=== PATIENT | female | born 1965 | race Caucasian/White ===

== ENCOUNTER 2018-04-01 00:57 | Emergency (ER) | payer OTHER ==
[~2018-04-01] VITALS: Ht 162.6 cm; Wt 127.0 kg
[2018-04-01] MEDS ORDERED: PANTOPRAZOLE 40 MG 10ML VIAL IV STA (00:59)
[2018-04-01] MEDS ORDERED: ONDANSETRON HCL INJ 2 MG/ML VIAL IV STA ×2 (00:59→03:12)
--- OUTSIDE RECORDS SUMMARY | 2018-04-01 00:59 | XMS REPORT | Encounter Summary ---
Author Organization Unknown Address [address] [place] [address] Phone [phone] Reason for Visit Medical Complaint Instructions 1. Influenza-like illness fluticasone 50 mcg/actuation nasal spray,suspension benzonatate 200 mg capsule Bromfed DM 2 mg-30 mg-10 mg/5 mL syrup rapid flu (A+B) oseltamivir 75 mg capsule influenza (flu): care instructions 2. Diarrhea diarrhea: care instructions loperamide 2 mg capsule Discussion Note Pt in NAD, understands all information provided Plan of Care Patient Instructions Pt understands care instructions, will rest, increase fluids,monitor and treat fever with OCT tylenol/ibuprofen and practice good hand hygiene. Please seek care (PCP, Urgent Care, ER) or [facility] if symptoms get worse or do not resolve in 1 week. Reminders Provider Appointments None recorded. Lab Rapid Flu (A+B) 06/09/2016 [facility] Referral None recorded. Procedures None recorded. Surgeries None recorded. Imaging None recorded. Medications Name Start Date azelastine 137 mcg (0.1 %) nasal spray aerosol azithromycin 250 mg tablet Belviq 10 mg tablet TAKE ONE (1) TABLET(S) BY MOUTH TWICE A DAY. benzonatate 200 mg capsule Take 1 capsule 3 times a day by oral route as needed for cough. Bromfed DM 2 mg-30 mg-10 mg/5 mL syrup Take 10 mL every 6 hours by oral route as needed for cough. ciprofloxacin 500 mg tablet EpiPen 2-Dannie 0.3 mg/0.3 mL injection, auto-injector INJECT ONE (1) SYRINGE INTRAMUSCULARLY 1 DOSE. fluticasone 50 mcg/actuation nasal spray,suspension Inhale 1 sprays into each nostril twice a day levocetirizine 5 mg tablet levofloxacin 500 mg tablet levothyroxine 125 mcg tablet levothyroxine 150 mcg tablet liothyronine 5 mcg tablet loperamide 2 mg capsule 4 mg PO x1, then 2 mg PO after each loose stool; Max: 16 mg/day misoprostol 200 mcg tablet montelukast 10 mg tablet Mucinex D Maximum Strength 120 mg-1,200 mg tablet,extended release Take 1 tablet every 12 hours by oral route as directed for 10 days. Nasonex 50 mcg/actuation [place] nystatin 100,000 unit/mL oral suspension SHAKE WELL; SWISH AND SPIT 5ML ORALLY FOUR TIMES A DAY FOR 7 DAYS. oseltamivir 75 mg capsule Take 1 capsule twice a day by oral route for 5 days. phendimetrazine tartrate ER 105 mg capsule,extended release TAKE ONE (1) CAPSULE(S) BY MOUTH ONCE A DAY. phentermine 37.5 mg tablet TAKE ONE AND ONE-HALF (1 AND 1/2) TABLET(S) BY MOUTH ONCE A DAY. prednisone 20 mg tablet TAKE ONE (1) TABLET(S) BY MOUTH EVERY DAY WITH MEALS FOR 5 DAYS. ProAir HFA 90 mcg/actuation aerosol inhaler INHALE TWO (2) PUFFS BY MOUTH EVERY 4 TO 6 HOURS NEEDED FOR COUGH / WHEEZING. promethazine-DM 6.25 mg-15 mg/5 mL syrup sulfamethoxazole 800 mg-trimethoprim 160 mg tablet tramadol 37.5 mg-acetaminophen 325 mg tablet Medications Administered None recorded. Vitals Height Weight BMI Blood Pressure 5 ft 4 in 280 lbs 48.1 130/90 Lab Results None recorded. Allergies Name Reaction Severity Onset Biaxin Nausea Vomiting Clindamycin Respiratory Distress Penicillins Other Severe Problems Name Status Onset Date Source Lupus Erythematosus Active 06/09/2016 Acute Conjunctivitis Active Encounter Dysfunction of Eustachian Tube Active Encounter Otitis Media Active Encounter Acute Sinusitis Active Encounter Acute Maxillary Sinusitis Active Encounter Acute Upper Respiratory Infection Active Encounter Upper Respiratory Infection Active Encounter Acute Bronchitis Active Encounter Allergic Rhinitis Active Encounter Allergic Rhinitis Due to Pollen Active Encounter Procedures Date Name Performed by 04/14/2014 Cholecystectomy Information not available Vaccine List Vaccine Type Influenza A monovalent (H5N1), ADJUVANTED-201201/11/2014 influenza, seasonal, injectable 01/11/2015 influenza, unspecified formulation 01/24/2013 Tdap 04/13/2006 Social History Smoking Status Never Smoker Past Encounters 06/09/2016 Influenza-like Illness; Diarrhea Mihir Small, THERMOSTAT MAKER-C: [address] [facility], [place] [address], Ph. [phone] History of Present Illness Xbakyoa-Ersoz-Lhy Reported By: Patient HPI: Quality: cannot identify. Duration: 2 days. Severity: highest temperature . Context: no ill contacts, no tick/insect bites, no recent travel, no new medications. Associated Symptoms: no muscle aches, no rash, no lethargy, fever/chills, headache, cold symptoms, generalized pain, tired (fatigue), cough, nasal passage blockage (stuffiness), nasal discharge. Modifying Factors nothing gives relief Review of Systems:ROS as noted in the HPI Review of Systems Basic Reported By: Patient Physical Exam Adult Basic, Adult Female Complete Reported By: Patient Constitutional: General Appearance: healthy-appearing, well-nourished, well-developed. Level of Distress: NAD. Ambulation: ambulating normally Psychiatric: Mental Status: active and alert. Orientation: to time, to place, to person Kwg-Iona-Cepjf-Throat: Ears: no lesions on external ear, no outer ear tenderness, EACs clear, TM erythematous. Hearing: no hearing loss. Nose: nasal discharge--purulent, nasal discharge--rhinorrhea, post nasal drip. Oropharynx: erythema Lungs: Respiratory effort: no dyspnea, no tachypnea, no use of accessory muscles, no intercostal retractions. Auscultation: breath sounds normal Cardiovascular: Heart Auscultation: RRR, no murmurs
--- OUTSIDE RECORDS SUMMARY | 2018-04-01 00:59 | XMS REPORT | Encounter Summary ---
Author Organization Unknown Address [address] [place] [address] Phone [phone] Reason for Visit Medical Complaint Instructions 1. Acute sinusitis sinusitis: care instructions Bromfed DM 2 mg-30 mg-10 mg/5 mL syrup Zithromax Z-Dannie 250 mg tablet 2. Allergic rhinitis allergies: care instructions fluticasone 50 mcg/actuation nasal spray,suspension azelastine 137 mcg (0.1 %) nasal spray aerosol prednisone 20 mg tablet Discussion Note: None recorded. Plan of Care Patient Instructions Please continue albuterolinhaler as prescribed.Try warm salt water gargles, throat lozanges, soups ortea with honey and/or lemon juice to soothe the throat.Take tylenolevery 6 hours as needed for fever and pain.Please complete antibiotic course even after symptoms resolve. Please f/u with PCP in 1 week or seek care immediatelyif you are short of breath, have trouble breathing, or can't catch breath. Follow up with PCP/UC/ER or seek care if symptoms getworse or no improvement in 3 days. Patient verbalizes understanding and agrees to the plan. Reminders Provider Appointments None recorded. Lab None recorded. Referral None recorded. Procedures None recorded. Surgeries None recorded. Imaging None recorded. Medications Name Start Date azelastine 137 mcg (0.1 %) nasal spray aerosol [place] 2 spray(s) twice a day by intranasal route as directed for 14 days. Belviq 10 mg tablet TAKE ONE (1) TABLET(S) BY MOUTH TWICE A DAY. Bromfed DM 2 mg-30 mg-10 mg/5 mL syrup Take 10 mL every 6 hours by oral route as needed for cough. EpiPen 2-Dannie 0.3 mg/0.3 mL injection, auto-injector INJECT ONE (1) SYRINGE INTRAMUSCULARLY 1 DOSE. fluticasone 50 mcg/actuation nasal spray,suspension Inhale 2 sprays into each nostril EVERY DAY levocetirizine 5 mg tablet levofloxacin 500 mg tablet levothyroxine 125 mcg tablet liothyronine 5 mcg tablet montelukast 10 mg tablet Mucinex D Maximum Strength 120 mg-1,200 mg tablet,extended release Take 1 tablet(s) every 12 hours by oral route as directed for 10 days. Nasonex 50 mcg/actuation [place] phendimetrazine tartrate ER 105 mg capsule,extended release TAKE ONE (1) CAPSULE(S) BY MOUTH ONCE A DAY. phentermine 37.5 mg tablet TAKE ONE AND ONE-HALF (1 AND 1/2) TABLET(S) BY MOUTH ONCE A DAY. prednisone 20 mg tablet Take 1 tablet(s) every day by oral route with meals for 5 days. ProAir HFA 90 mcg/actuation aerosol inhaler INHALE TWO (2) PUFFS BY MOUTH EVERY 4 TO 6 HOURS NEEDED FOR COUGH / WHEEZING. promethazine-DM 6.25 mg-15 mg/5 mL syrup sulfamethoxazole 800 mg-trimethoprim 160 mg tablet Zithromax Z-Dannie 250 mg tablet Take 2 tablets by oral route for 1 day then 1 tablet for the next 4 days Medications Administered None recorded. Vitals Height Weight BMI Blood Pressure 5 ft 4 in 280 lbs 48.1 124/84 Lab Results None recorded. Allergies Name Reaction Severity Onset Biaxin Nausea Vomiting Clindamycin Respiratory Distress Penicillins Other Severe Problems Name Status Onset Date Source Acute Conjunctivitis Active Encounter Dysfunction of Eustachian [...] List Vaccine Type Influenza A monovalent (H5N1), ADJUVANTED-2013 01/11/2014 influenza, seasonal, injectable 01/11/2015 influenza, unspecified formulation 01/24/2013 Tdap 04/13/2006 Social History Smoking Status Never Smoker Past Encounters 11/18/2015 Acute Sinusitis; Allergic Rhinitis PENG James: [address] [facility], [place] [address], Ph. History of Present Illness Itoeg-Vqwwovszju-Dyjdjdr Reported By: Patient HPI: Location: head/sinuses, throat. Quality: productive cough, sore throat, nasal/sinus congestion, dry cough, wheezy cough. Duration: 9days. Severity: moderate. Onset/Timing: gradual. Context: no sick contacts, no foreign travel, non-smoker, allergies. Modifying factors: OTC medication. Associated Symptoms: no shortness of breath, no wheezing, no change in number of pillows needed to sleep at night, no sweats, no significant weight gain, no significant weight loss, no morning cough, no sore throat, no vomiting, no diarrhea, no rash, no nausea, green sputum, yellow sputum Review of Systems Basic Reported By: Patient Constitutional: Constitutional: fever Eyes: Eyes: no eye complaints Vxnj-Knul-Jyood-Throat: Ears: ear pain. Nose: nose/sinus problems. Mouth/Throat: no bleeding gums, no mouth complaints, no teeth problems, sore throat Cardiovascular: Cardiovascular: no chest pain, no shortness of breath, no known heart murmur Respiratory: Respiratory: no shortness of breath, cough, wheezing Gastrointestinal: Gastrointestinal: no abdominal pain, no vomiting / diarrhea Genitourinary: Genitourinary: no urinary complaints, no discharge Musculoskeletal: Musculoskeletal: no muscle aches, no muscle weakness, no arthralgias/joint pain, no back pain Skin: Skin: no abnormal / changing mole, no jaundice, no rashes Neurologic: Neurologic: no loss of consciousness, no weakness, no numbness, no seizures, no dizziness, headache Physical Exam Adult Basic, Adult Female Complete Constitutional: General Appearance: healthy-appearing, well-nourished, well-developed. Level of Distress: NAD. Ambulation: ambulating normally Psychiatric: Mental Status: active and alert. Orientation: to time, to place, to person Eyes: Lids and Conjunctivae: non-injected, no discharge, no pallor. Pupils: PERRLA. EOM: EOMI. Lens: clear. Sclerae: non-icteric Pcs-Ekfa-Lmbup-Throat: Ears: no lesions on external ear, no outer ear tenderness, EACs clear, TMs clear, middle ear fluid. Hearing: no hearing loss. Nose: no lesions on external nose, nares patent, no septal deviation, nasal passages clear, sinus tenderness, nasal discharge--purulent, post nasal drip. Lips, Teeth, and Gums: no mouth or lip ulcers. Oropharynx: moist mucous membranes, no exudates, tonsils not enlarged, erythema Neck: Neck: supple. Lymph Nodes: anterior cervical LAD Lungs: Respiratory effort: no dyspnea, no tachypnea. Auscultation: breath sounds normal Cardiovascular: Heart Auscultation: RRR, no murmurs Neurologic: Gait and Station: normal gait
--- OUTSIDE RECORDS SUMMARY | 2018-04-01 00:59 | XMS REPORT | Continuity of Care Document ---
Author Author [facility] Address Unknown Phone Unavailable Problems Problem Status Onset Date Classification Date Reported Comments Source Lupus Erythematosus 06/09/2016 Problem 06/09/2016 [facility] Influenza-like illness 06/09/2016 Diagnosis 06/09/2016 [facility] Diarrhea 06/09/2016 Diagnosis 06/09/2016 [facility] Acute sinusitis 11/18/2015 Diagnosis 11/18/2015 [facility] Allergic rhinitis 11/18/2015 Diagnosis 11/18/2015 [facility] Acute Conjunctivitis Problem 06/09/2016 [facility] Dysfunction of Eustachian Tube Problem 06/09/2016 [facility] Otitis Media Problem 06/09/2016 [facility] Acute Sinusitis Problem 06/09/2016 [facility] Acute Maxillary Sinusitis Problem 06/09/2016 [facility] Acute Upper Respiratory Infection Problem 06/09/2016 [facility] Upper Respiratory Infection Problem 06/09/2016 [facility] Acute Bronchitis Problem 06/09/2016 [facility] Allergic Rhinitis Problem 06/09/2016 [facility] Allergic Rhinitis Due to Pollen Problem 06/09/2016 [facility] Medications Medication Details Route Status Patient Instructions Ordering Provider Order Date Source Azelastine hydrochloride 0.137 MG/ACTUAT Metered Dose Nasal [place] azelastine 137 mcg (0.1 %) nasal spray aerosol Active [facility] lorcaserin hydrochloride 10 MG Oral Tablet [Belviq] Belviq 10 mg tablet TAKE ONE (1) TABLET(S) BY MOUTH TWICE A DAY. Active [facility] Brompheniramine Maleate 0.4 MG/ML / Dextromethorphan Hydrobromide 2 MG/ML / Pseudoephedrine Hydrochloride 6 MG/ML Oral Solution [Bromfed DM] Bromfed DM 2 mg-30 mg-10 mg/5 mL syrup Take 10 mL every 6 hours by oral route as needed for cough. Active [facility] 0.3 ML Epinephrine 1 MG/ML Auto-Injector [Epipen] EpiPen 2-Dannie 0.3 mg/0.3 mL injection, auto-injector INJECT ONE (1) SYRINGE INTRAMUSCULARLY 1 DOSE. Active [facility] Fluticasone propionate 0.05 MG/ACTUAT Metered Dose Nasal [place] fluticasone 50 mcg/actuation nasal spray,suspension Inhale 1 sprays into each nostril twice a day Active [facility] levocetirizine dihydrochloride 5 MG Oral Tablet levocetirizine 5 mg tablet Active [facility] Levofloxacin 500 MG Oral Tablet levofloxacin 500 mg tablet Active [facility] Levothyroxine Sodium 0.125 MG Oral Tablet levothyroxine 125 mcg tablet Active [facility] liothyronine sodium 0.005 MG Oral Tablet liothyronine 5 mcg tablet Active [facility] montelukast 10 MG Oral Tablet montelukast 10 mg tablet Active [facility] 12 HR Guaifenesin 1200 MG / Pseudoephedrine Hydrochloride 120 MG Extended Release Oral Tablet [Mucinex D] Mucinex D Maximum Strength 120 mg-1,200 mg tablet,extended release Take 1 tablet every 12 hours by oral route as directed for 10 days. Active [facility] mometasone furoate 0.05 MG/ACTUAT Metered Dose Nasal [place] [Nasonex] Nasonex 50 mcg/actuation [place] Active [facility] 24 HR phendimetrazine tartrate 105 MG Extended Release Oral Capsule phendimetrazine tartrate ER 105 mg capsule,extended release TAKE ONE (1) CAPSULE(S) BY MOUTH ONCE A DAY. Active [facility] Phentermine Hydrochloride 37.5 MG Oral Tablet phentermine 37.5 mg tablet TAKE ONE AND ONE-HALF (1 AND 1/2) TABLET(S) BY MOUTH ONCE A DAY. Active [facility] Prednisone 20 MG Oral Tablet prednisone 20 mg tablet TAKE ONE (1) TABLET(S) BY MOUTH EVERY DAY WITH MEALS FOR 5 DAYS. Active [facility] 200 ACTUAT Albuterol 0.09 MG/ACTUAT Metered Dose Inhaler [ProAir] ProAir HFA 90 mcg/actuation aerosol inhaler INHALE TWO (2) PUFFS BY MOUTH EVERY 4 TO 6 HOURS NEEDED FOR COUGH / WHEEZING. Active [facility] Dextromethorphan 3 MG/ML / Promethazine Hydrochloride 1.25 MG/ML Oral Solution promethazine-DM 6.25 mg-15 mg/5 mL syrup Active [facility] Sulfamethoxazole 800 MG / Trimethoprim 160 MG Oral Tablet sulfamethoxazole 800 mg-trimethoprim 160 mg tablet Active [facility] Azithromycin 250 MG Oral Tablet azithromycin 250 mg tablet Active [facility] benzonatate 200 MG Oral Capsule benzonatate 200 mg capsule Take 1 capsule 3 times a day by oral route as needed for cough. Active [facility] Ciprofloxacin 500 MG Oral Tablet ciprofloxacin 500 mg tablet Active [facility] Levothyroxine Sodium 0.15 MG Oral Tablet levothyroxine 150 mcg tablet Active [facility] Loperamide Hydrochloride 2 MG Oral Capsule loperamide 2 mg capsule 4 mg PO x1, then 2 mg PO after each loose stool; Max: 16 mg/day Active [facility] Misoprostol 0.2 MG Oral Tablet misoprostol 200 mcg tablet Active [facility] Nystatin [id number] UNT/ML Oral Suspension nystatin 100,000 unit/mL oral suspension SHAKE WELL; SWISH AND SPIT 5ML ORALLY FOUR TIMES A DAY FOR 7 DAYS. Active [facility] Oseltamivir 75 MG Oral Capsule oseltamivir 75 mg capsule Take 1 capsule twice a day by oral route for 5 days. Active [facility] Dextromethorphan Hydrobromide 3 MG/ML / Promethazine Hydrochloride 1.25 MG/ML Oral Solution promethazine-DM 6.25 mg-15 mg/5 mL syrup Active [facility] Acetaminophen 325 MG / tramadol hydrochloride 37.5 MG Oral Tablet tramadol 37.5 mg-acetaminophen 325 mg tablet Active [facility] Allergies, Adverse Reactions, Alerts Substance Category Reaction Severity Reaction type Status Date Reported Comments Source Biaxin Nausea Allergy to substance 03/03/2009 [facility] Penicillins Other Severe Allergy to substance 03/03/2009 [facility] Clindamycin Respiratory distress Allergy to substance 04/06/2014 [facility] Immunizations Immunization Date Given Site Status Last Updated Comments Source influenza, seasonal, injectable 01/12/2015 completed [facility] Influenza A monovalent (H5N1), ADJUVANTED-2013 01/12/2014 completed [facility] influenza, unspecified formulation 01/25/2013 completed [facility] Tdap 04/14/2006 completed [facility] Results Order Name Results Value Reference Range Date Interpretation Comments Source Vital Signs Vital Sign Value Date Comments Source Diastolic (mm Hg) 90 06/09/2016 [facility] Height 64 06/09/2016 [facility] Systolic (mm Hg) 130 06/09/2016 [facility] Weight 280 06/09/2016 [facility] Diastolic (mm Hg) 84 11/18/2015 [facility] Height 64 11/18/2015 [facility] Systolic (mm Hg) 124 11/18/2015 [facility] Weight 280 11/18/2015 [facility] Encounters Location Location Details Encounter Type Encounter Number Reason For Visit Attending Provider ADM Date DC Date Status Source [place] - [facility] - [id number] Baylee Valencia, BELTING AND WEBBING INSPECTOR: [address] [place] [address], Ph. [id number] Baylee Valencia 11/18/2015 [facility] [place] [facility] [id number] Mihir Small, GROUP DIRECTOR EXPERIENCE-C: [address], [place] [address], Ph. [phone] [id number] Mihir Small 06/09/2016 [facility] Procedures Procedure Code Date Perfomer Comments Source Cholecystectomy 04/14/2014 [facility]
[2018-04-01] MEDS ORDERED: SODIUM CHLORIDE 0.9% 1000ML 1,000 ML IV ONE (01:00)
[2018-04-01] MEDS ORDERED: MORPHINE SULFATE 2 MG/ML SYR IV STA (01:04)
[2018-04-01] MEDS ORDERED: AZELASTINE137 MCG/0. (01:12)
[2018-04-01] MEDS ORDERED: CITALOPRAM HBR20 MG PO (01:12)
[2018-04-01] MEDS ORDERED: FOLIC ACID1 MG PO (01:12)
[2018-04-01] MEDS ORDERED: MONTELUKAST SOD10 MG PO (01:12)
[2018-04-01] MEDS ORDERED: METHOTREXATE2.5 MG PO (01:12)
[2018-04-01] MEDS ORDERED: LIOTHYRONINE SO5 MCG PO (01:12)
[2018-04-01] MEDS ORDERED: PANTOPRAZOLE SO40 MG PO (01:12)
[2018-04-01] MEDS ORDERED: LEVOTHYROXINE150 MCG PO (01:12)
[2018-04-01] MEDS ORDERED: FLUTICASONE PRO16 GM (01:12)
[2018-04-01 01:14] LABS: BASOPHILS # (AUTO) 0.1 (0.0-0.1); BASOPHILS % 0.4 % (0.0-1.0); EOSINOPHILS # (AUTO) 0.1 (0.0-0.4); EOSINOPHILS % 0.7 % (0.0-6.0); HEMATOCRIT 48.4 % (34.2-44.1); HEMOGLOBIN 15.5 g/dL (12.0-16.0); LYMPHOCYTES % 6.1 % (18.0-39.1); MEAN CORPUSCULAR HEMOGLOBIN 31.4 pg (28-32); MEAN CORPUSCULAR VOLUME 98.2 fL (81-99); MONOCYTES # (AUTO) 0.7 (0.2-0.8); MONOCYTES % 4.1 % (4.4-11.3); NEUTROPHILS # (AUTO) 14.8 (2.1-6.9); NEUTROPHILS % 88.3 % (38.7-80.0); PLATELET COUNT 277 x10e3/uL (140-360); RED BLOOD COUNT 4.93 x10e6/uL (3.6-5.1); RED CELL DISTRIBUTION WIDTH 14.2 % (11.7-14.4)
[2018-04-01] MEDS ORDERED: PROMETHAZINE HCL (IM) 25 MG/ML VIAL ONE (01:25)
[2018-04-01] MEDS ORDERED: MORPHINE SULFATE INJ 4 MG/ML INJ ONE (01:35)
[2018-04-01 01:36] LABS: ALANINE AMINOTRANSFERASE 38 IU/L (0-55); ALBUMIN 3.8 g/dL (3.5-5.0); ALKALINE PHOSPHATASE 76 IU/L (40-150); AMYLASE 61 U/L (25-125); BLOOD UREA NITROGEN 11 mg/dL (7-26); BUN/CREATININE RATIO 13 (6-25); CALCIUM 9.3 mg/dL (8.4-10.2); CARBON DIOXIDE 17 mmol/L (22-29); CHLORIDE 102 mmol/L (98-107); CREATININE, SERUM 0.87 mg/dL (0.57-1.11); EST GLOMERULAR FILTRATION RATE > 60 ML/MIN (60-); GLUCOSE 151 mg/dL (74-118); LIPASE 24 U/L (8-78); SODIUM 136 mmol/L (136-145)
[2018-04-01] MEDS ORDERED: PROMETHAZINE HCL (IM) 25 MG/ML VIAL IM ONE (01:45)
[2018-04-01 01:47] LABS: CLARITY,URINE CLEAR (CLEAR); COLOR,URINE YELLOW (YELLOW)
[2018-04-01 01:48] LABS: BILIRUBIN,URINE NEGATIVE (NEGATIVE); KETONES,URINE NEGATIVE (NEGATIVE); LEUKOCYTE ESTERASE ,URINE NEGATIVE (NEGATIVE); NITRITE,URINE NEGATIVE (NEGATIVE); PROTEIN,URINE DIPSTICK 2+ (NEGATIVE); URINE UROBILINOGEN 0.2 mg/dL (0.2 - 1)
[2018-04-01 01:55] LABS: BACTERIA,URINE MODERATE /HPF; EPITHELIAL CELLS,URINE FEW /LPF; MUCUS,URINE MANY (RARE); RBC,URINE 0-5 /HPF (0-5); WBC,URINE (MAN) 0-5 /HPF (0-5)
[2018-04-01] MEDS ORDERED: IOPAMIDOL 370 MG/ML 200 ML INFUS..BTL INJ ONE (02:15)
[2018-04-01] MEDS ORDERED: SODIUM CHLORIDE 0.9% 50ML 50 ML ONE (02:15)
--- NOTE | 2018-04-01 03:06 | Diagnostic Imaging Report ---
EXAM: CT ABDOMEN/PELVIS W DATE: 04/01/2018 1:03 AM INDICATION: ^ABD PAIN, VOMITING ^[id number] ^0215 ^Y COMPARISON: None TECHNIQUE: The abdomen and pelvis were scanned using a multidetector helical scanner. Coronal and sagittal reformations were obtained. CT low dose techniques were utilized, as applicable. IV Contrast: 100 ml Isovue 300/370 FINDINGS: LOWER THORAX: No consolidations LIVER/BILIARY: Probable hepatic steatosis. No masses. No ductal dilatation. GALLBLADDER: Surgically absent SPLEEN: Unremarkable PANCREAS: Unremarkable ADRENALS: No nodules KIDNEYS: No suspicious renal masses. No hydronephrosis. GI TRACT: Nonspecific fluid-filled small bowel loops. No wall thickening or evidence of obstruction. Normal appendix. VESSELS: Unremarkable PERITONEUM/RETROPERITONEUM: No free air or fluid LYMPH NODES: No lymphadenopathy REPRODUCTIVE ORGANS/BLADDER: Fibroid uterus. Otherwise unremarkable SOFT TISSUES: Unremarkable BONES: Scattered degenerative changes. Nonspecific lucency of L1 (sagittal image 87). IMPRESSION: 1. No acute abnormality in the abdomen or pelvis. 2. Nonspecific lucency of L1, favored to be related to focal demineralization/bone marrow heterogeneity. Consider nonemergent follow-up radiographs or MRI. Signed by: Dr Cynthia Jacobo MD on 04/01/2018 3:03 AM
[2018-04-01] MEDS ORDERED: METHOTREXATE SOD 2.5 MG TAB PO SCH (03:45)
[2018-04-01] MEDS ORDERED: ONDANSETRON HCL INJ 2 MG/ML VIAL IV PRN (03:45)
[2018-04-01] MEDS ORDERED: SODIUM CHLORIDE 0.9% 1000ML 1,000 ML ONE (03:47)
[2018-04-01] MEDS: SODIUM CHLORIDE 0.9% 1000ML 1,000 ML IV SCH ×2 (03:52→13:14)
--- OUTSIDE RECORDS SUMMARY | 2018-04-01 04:09 | XMS REPORT ---
Author Author [facility] Address Unknown Phone Unavailable Care Team Providers Care Surgical Garment Assembler Name Role Phone Oscar ZARATE Unavailable Unavailable Problems This patient has no known problems. Allergies, Adverse Reactions, Alerts This patient has no known allergies or adverse reactions. Medications This patient has no known medications. Results Test Description Test Time Test Comments Text Results Atomic Results Result Comments CT ABDOMEN/PELVIS W 2018-04-01 02:49:00 [place] [address] Patient Name: ADAL CHINO MR #: [id number] : 1965 Age/Sex: 53/F Req #: [id number] Adm Physician: Ordered by: EDUARDO ZARATE MD Report #: [id number] Location: ER Room/Bed: Procedure: [id number] CT/CT ABDOMEN/PELVIS W Exam Date: 04/01/18 Exam Time: 214 REPORT STATUS: Signed EXAM: CT ABDOMEN/PELVIS W DATE: 04/01/2018 1:03 AM INDICATION: ABD PAIN, VOMITING [id number] COMPARISON: None TECHNIQUE: The abdomen and pelvis were scanned using a multidetector helical scanner. Coronal and sagittal reformations were obtained. CT low dose techniques were utilized, as applicable. IV Contrast: 100 ml Isovue 300/370 FINDINGS: LOWER THORAX: No consolidations LIVER/BILIARY: Probable hepatic steatosis. No masses. No ductal dilatation. GALLBLADDER: Surgically absent SPLEEN: Unremarkable PANCREAS: Unremarkable ADRENALS: No nodules KIDNEYS: No suspicious renal masses. No hydronephrosis. GI TRACT: Nonspecific fluid-filled small bowel loops. No wall thickening or evidence of obstruction. Normal appendix. VESSELS: Unremarkable PERITONEUM/RETROPERITONEUM: No free air or fluid LYMPH NODES: No lymphadenopathy REPRODUCTIVE ORGANS/BLADDER: Fibroid uterus. Otherwise unremarkable SOFT TISSUES: Unremarkable BONES: Scattered degenerative changes. Nonspecific lucency of L1 (sagittal image 87). IMPRESSION: 1. No acute abnormality in the abdomen or pelvis. 2. Nonspecific lucency of L1, favored to be related to focal demineralization/bone marrow heterogeneity. Consider nonemergent follow-up radiographs or MRI. Signed by: Dr Michell Jacobo MD on 04/01/2018 3:03 AM Dictated By: MICHELL JACOBO MD 2 Transcribed By: KINSEY on 04/01/18302 COPY TO: EDUARDO ZARATE MD
[2018-04-01] MEDS ORDERED: DIPHENHYDRAMINE HCL INJ 50 MG/ML VIAL ONE (05:10)
[2018-04-01] MEDS ORDERED: METOCLOPRAMIDE HCL 10 MG/2ML VIAL ONE (05:10)
[2018-04-01] MEDS ORDERED: METOCLOPRAMIDE HCL 10 MG/2ML VIAL IV ONE (05:15)
[2018-04-01] MEDS ORDERED: DIPHENHYDRAMINE HCL INJ 50 MG/ML VIAL IV ONE (05:15)
[2018-04-01] MEDS ORDERED: LEVOTHYROXINE SODIUM 50 MCG TAB PO SCH (06:00)
--- NOTE | 2018-04-01 06:06 | History and Physical ---
REASON FOR ADMISSION: Gastroenteritis and dehydration. HISTORY OF PRESENT ILLNESS: Patient is a 53-year-old lady well known to me with a history of lupus that ate [place] food, and shortly thereafter started having significant amounts of nausea and vomiting to the point she could not keep any p.o. intake down. She then presented to the emergency room where she was noted to have slightly elevated white count of 16,000. CT scan unremarkable for acute abdominal pathology. Unfortunately, she still continued with this same problem. She is being admitted for IV fluids and IV antiemetics. PAST MEDICAL HISTORY: Significant for lupus. MEDICATIONS: See MAR. ALLERGIES: BIAXIN AND PENICILLIN. SOCIAL HISTORY: Lives at home with her . Does not drink. FAMILY HISTORY: Hypertension. PHYSICAL EXAMINATION VITALS: 98.6, blood pressure 136/72, pulse 90, sats 100% on room air. GENERAL: She is in no apparent distress lying in bed. NECK: Supple. No lymphadenopathy. CARDIOVASCULAR: Regular rate and rhythm. LUNGS: Clear to auscultation bilaterally. ABDOMEN: Good bowel sounds. Soft and nontender. No apparent appendicitis. EXTREMITIES: No clubbing or cyanosis. NEUROLOGIC: Nonfocal. ASSESSMENT AND PLAN 1. Gastroenteritis with dehydration: Continue with intravenous fluids and intravenous antiemetics. 2. Leukocytosis: Continue to monitor. Most likely secondary to dehydration. 3. Lupus: Will resume her home medicines once she is discharged. 4. Nausea and vomiting: Continue with antiemetics. Please see hospital chart for full details. Job#: [id number] [place]
[2018-04-01] MEDS ORDERED: NON-FORMULARY MEDICATION (Levothyroxine Sodium 150 MCG) PO SCH (09:00)
[2018-04-01] MEDS ORDERED: FOLIC ACID 1 MG TAB PO SCH (09:00)
[2018-04-01] MEDS ORDERED: LIOTHYRONINE SODIUM 5 MCG TAB PO SCH (09:00)
[2018-04-01] MEDS ORDERED: CITALOPRAM HYDROBROMIDE 20 MG TAB PO SCH (09:00)
[2018-04-01] MEDS ORDERED: MONTELUKAST SODIUM 10 MG TAB PO SCH (09:00)
[2018-04-01] MEDS ORDERED: PANTOPRAZOLE 40 MG 10ML VIAL IV SCH (09:00)
== END 2018-04-01 14:31 | disposition home or self-care (01) ==
LOC: ER 00:57 → UNDOADMOB 04:07 → ERHOLD 04:07
DX: R10.11 Right upper quadrant pain (principal); R11.2 Nausea with vomiting, unspecified; T62.91XA Toxic effect of unspecified noxious substance eaten as food, accidental (unintentional), initial encounter; M32.9 Systemic lupus erythematosus, unspecified
CPT/HCPCS: 36415; 74177; 80053; 81001; 82150; 83690; 85025; 99284; J1200; J2270; J2405; J2550; J2765; J7030; Q9967

== ENCOUNTER 2018-08-19 13:56 | Observation (INO) | payer OTHER ==
[~2018-08-19] VITALS: Ht 162.6 cm; Wt 127.0 kg
[~2018-08-19 13:56] MED LIST: AZELASTINE137 MCG/0.; CITALOPRAM HBR20 MG PO; FLUTICASONE PRO16 GM; FOLIC ACID1 MG PO; LEVOTHYROXINE150 MCG PO; LIOTHYRONINE SO5 MCG PO; METHOTREXATE2.5 MG PO; MONTELUKAST SOD10 MG PO; PANTOPRAZOLE SO40 MG PO
[2018-08-19 15:00] LABS: BILIRUBIN,URINE NEGATIVE (NEGATIVE); CLARITY,URINE CLEAR (CLEAR); COLOR,URINE YELLOW (YELLOW); KETONES,URINE NEGATIVE (NEGATIVE); LEUKOCYTE ESTERASE ,URINE NEGATIVE (NEGATIVE); NITRITE,URINE NEGATIVE (NEGATIVE); PROTEIN,URINE DIPSTICK NEGATIVE (NEGATIVE); URINE UROBILINOGEN 0.2 mg/dL (0.2 - 1)
[2018-08-19 15:25] LABS: EPITHELIAL CELLS,URINE FEW /LPF
--- NOTE | 2018-08-19 16:25 | Diagnostic Imaging Report ---
EXAMINATION: CHEST 2 VIEWS INDICATION: Chest pain. COMPARISON: None FINDINGS: TUBES and LINES: None. LUNGS: Lungs are not well inflated. Mild patchy bibasilar opacities, likely atelectasis. Mild bilateral interstitial opacities. No evidence of lobar pneumonia. PLEURA: No pleural effusion or pneumothorax. HEART AND MEDIASTINUM: The cardiomediastinal silhouette is unremarkable. BONES AND SOFT TISSUES: No acute osseous abnormality. UPPER ABDOMEN: No free air under the diaphragm. There are cholecystectomy clips. IMPRESSION: Low lung volumes, cannot exclude mild pulmonary interstitial edema. Signed by: Dr. Amandeep Castle MD on 08/19/2018 4:22 PM
[2018-08-19] MEDS ORDERED: ASPIRIN 81 MG CHEW TAB PO STA (17:39)
[2018-08-19 17:44] LABS: BASOPHILS % 0.3 % (0.0-1.0); EOSINOPHILS # (AUTO) 0.1 (0.0-0.4); EOSINOPHILS % 1.2 % (0.0-6.0); HEMATOCRIT 41.9 % (34.2-44.1); HEMOGLOBIN 13.9 g/dL (12.0-16.0); LYMPHOCYTES # (AUTO) 2.5 (1.0-3.2); LYMPHOCYTES % 22.9 % (18.0-39.1); MEAN CORPUSCULAR HEMOGLOBIN 30.7 pg (28-32); MEAN CORPUSCULAR HGB CONC 33.2 g/dL (31-35); MEAN CORPUSCULAR VOLUME 92.5 fL (81-99); MONOCYTES # (AUTO) 0.7 (0.2-0.8); MONOCYTES % 6.8 % (4.4-11.3); NEUTROPHILS # (AUTO) 7.5 (2.1-6.9); NEUTROPHILS % 68.3 % (38.7-80.0); PLATELET COUNT 252 x10e3/uL (140-360); RED BLOOD COUNT 4.53 x10e6/uL (3.6-5.1); RED CELL DISTRIBUTION WIDTH 13.5 % (11.7-14.4)
[2018-08-19] MEDS ORDERED: NITROGLYCERIN 2% OINT 1 GM PKT TOP ONE (17:45)
[2018-08-19 17:51] LABS: INR 0.93
[2018-08-19 17:52] LABS: PARTIAL THROMBOPLASTIN TIME 26.4 seconds (23.8-35.5)
[2018-08-19] MEDS ORDERED: NITROGLYCERIN 0.4 MG SUBL SL PRN (18:00)
[2018-08-19] MEDS ORDERED: FAMOTIDINE 20 MG TAB PO SCH (18:00)
[2018-08-19] MEDS ORDERED: SODIUM CHLORIDE FLUSH 10 ML SYR INJ PRN (18:00)
[2018-08-19] MEDS ORDERED: ASPIRIN 81 MG CHEW TAB PO ONE (18:00)
[2018-08-19 18:02] LABS: ALANINE AMINOTRANSFERASE 38 IU/L (0-55); ALBUMIN 3.6 g/dL (3.5-5.0); ALKALINE PHOSPHATASE 62 IU/L (40-150); ANION GAP 12.9 mmol/L (8-16); BLOOD UREA NITROGEN 8 mg/dL (7-26); BUN/CREATININE RATIO 10 (6-25); CARBON DIOXIDE 27 mmol/L (22-29); CHLORIDE 105 mmol/L (98-107); CREATINE KINASE 42 IU/L (29-168); CREATININE, SERUM 0.79 mg/dL (0.57-1.11); EST GLOMERULAR FILTRATION RATE > 60 ML/MIN (60-); GLUCOSE 108 mg/dL (74-118); MAGNESIUM 2.2 MG/DL (1.3-2.1); POTASSIUM 3.9 mmol/L (3.5-5.1); SODIUM 141 mmol/L (136-145)
[2018-08-19 18:22] LABS: THYROID STIMULATING HORMONE 0.009 uIU/mL (0.350-4.940)
[2018-08-19] MEDS ORDERED: MELOXICAM7.5 MG PO (19:49)
[2018-08-19] MEDS ORDERED: XYZAL5 MG PO (19:49)
[2018-08-19] MEDS ORDERED: FISH OIL 1,2001 EACH PO (19:50)
[2018-08-19 21:34] VITALS: BP 148/69
[2018-08-19 21:48] VITALS: BP 148/69
[2018-08-19 23:58] VITALS: BP 136/64
[2018-08-20 02:03] LABS: CREATINE KINASE 31 IU/L (29-168)
[2018-08-20] MEDS ORDERED: ACETAMINOPHEN 325 MG TAB PO PRN (04:15)
[2018-08-20] MEDS ORDERED: METHOTREXATE SOD 2.5 MG TAB PO SCH (05:00)
[2018-08-20 05:52] VITALS: BP 129/66
[2018-08-20 06:26] LABS: CREATINE KINASE 26 IU/L (29-168)
[2018-08-20 06:27] LABS: CHOL/HDL RATIO 2.6 (3.0-3.6)
[2018-08-20] MEDS ORDERED: LIOTHYRONINE SODIUM 5 MCG TAB PO SCH (07:30)
[2018-08-20] MEDS ORDERED: FLUTICASONE PROPIONATE NASAL SPRAY NS SCH (09:00)
[2018-08-20] MEDS ORDERED: LORATADINE 10 MG TAB PO SCH (09:00)
[2018-08-20] MEDS ORDERED: MONTELUKAST SODIUM 10 MG TAB PO SCH (09:00)
[2018-08-20] MEDS ORDERED: CITALOPRAM HYDROBROMIDE 20 MG TAB PO SCH (09:00)
[2018-08-20] MEDS ORDERED: MELOXICAM 7.5 MG TAB PO SCH (09:00)
[2018-08-20] MEDS ORDERED: ASPIRIN 325 MG TAB EC PO SCH (09:00)
[2018-08-20] MEDS ORDERED: PANTOPRAZOLE SOD 40 MG TABEC PO SCH (09:00)
[2018-08-20] MEDS ORDERED: FOLIC ACID 1 MG TAB PO SCH (09:00)
[2018-08-20 09:16] VITALS: BP 151/70
[2018-08-20 10:47] VITALS: BP 151/70
--- NOTE | 2018-08-20 11:24 | NUR ---
Patient alert and responsive, no resp distress, VSS and OOB ambulating in room. No c/o chest pains this morning. Rounds by cardiology and patient will have stress test as picked up at this time for stress test. Will monitor.
[2018-08-20 12:44] VITALS: BP 152/77
--- NOTE | 2018-08-20 13:29 | NUR ---
Rounds by emergency services director, stress test was uneventful and not concerning but based on symptoms and history of SLE, Chest CT PE protocol ordered and will be done by 15:30pm
[2018-08-20 14:02] LABS: CREATINE KINASE 29 IU/L (29-168)
[2018-08-20] MEDS ORDERED: SODIUM CHLORIDE 0.9% 50ML 50 ML ONE (15:53)
[2018-08-20] MEDS ORDERED: IOPAMIDOL 370 MG/ML 200 ML INFUS..BTL INJ ONE (15:54)
--- NOTE | 2018-08-20 16:32 | Diagnostic Imaging Report ---
EXAM: CT Chest WITH contrast- Pulmonary Embolism Protocol INDICATION: Chest pain, hypertension, shortness of breath, query pulmonary embolism. COMPARISON: Chest radiograph 08/19/2018. TECHNIQUE: Chest was scanned utilizing a multidetector helical scanner from the lung apex through the level of the diaphragm after administration of IV contrast. Thin section reconstructions were obtained with special concentration on the pulmonary arteries. Coronal and sagittal reformations were obtained. Pulmonary embolism protocol was performed. IV CONTRAST: 100 cc of Isovue 370 RADIATION DOSE: Total DLP: 609.3 mGy*cm Dose modulation, iterative reconstruction, and/or weight based adjustment of the mA/kV was utilized to reduce the radiation dose to as low as reasonably achievable. COMPLICATIONS: None FINDINGS: LINES/ TUBES: None. PULMONARY ARTERIES: No filling defect is identified within the pulmonary arteries to the segmental level. The subsegmental pulmonary arteries are not well opacified. Somewhat limited due to motion. Main pulmonary artery measures 2.5 cm in diameter. LUNGS AND AIRWAYS: The central airways are patent. No evidence of pneumonia or pulmonary edema. Minimal scattered atelectatic changes. Mild mosaic attenuation of the lungs. PLEURA: The pleural spaces are clear. HEART AND MEDIASTINUM: The thyroid gland is normal. No mediastinal, hilar or axillary lymphadenopathy. No cardiomegaly or pericardial effusion. Minimal atherosclerotic calcifications within the thoracic aorta. UPPER ABDOMEN: Limited contrast-enhanced views of the upper abdomen. Diffuse mild hepatic steatosis. Status post cholecystectomy. BONES: No acute osseous abnormality. No suspicious lytic or blastic lesions. Mild degenerative changes of the visualized spine. SOFT TISSUES: Unremarkable. IMPRESSION: No evidence of pulmonary embolism to the level of the segmental pulmonary arteries. The subsegmental pulmonary arteries are not well opacified. Mild mosaic attenuation of the lungs, which may reflect air-trapping or microvascular disease. Signed by: Dr. Amandeep Castle MD on 08/20/2018 4:29 PM
[2018-08-20 16:46] VITALS: BP 137/63
--- NOTE | 2018-08-20 17:44 | Consultation ---
DATE OF CONSULTATION: 08/20/2018 REASON FOR CONSULTATION: Chest pain. CHIEF COMPLAINT: Chest pain. HISTORY OF PRESENT ILLNESS: This is a 53-year-old female with history of lupus, hypothyroidism, diverticulitis, asthma, KEITH uses CPAP at home, obesity, reflux, retinal disease. The patient presents to [facility] ER with complaints of chest pain prior to coming to the hospital, therefore Cardiology was consulted. The patient is seen in room, reports was at work sitting and had episode of bilateral axillary discomfort, tightness, pressure, radiating to the front of her chest with some lightheadedness, dizziness, and some shortness of breath. She states that chest pain lasted about an hour. She apparently notified a co-worker and they took her blood pressure and she reports blood pressure was 198/105, and subsequently EMS was called and the patient was brought to the ER for further evaluation. Cardiac enzymes noted negative x3. EKG noted no changes suggestive of acute event. The patient reports has been chest pain-free since the event. PAST MEDICAL HISTORY: Lupus, hypothyroidism, diverticulitis, asthma, KEITH uses CPAP machine, obesity, reflux, retinal disease. PAST SURGICAL HISTORY: Left knee surgery, right wrist cyst removal. SOCIAL HISTORY: She is . She works at [employer]. Denies any alcohol or tobacco use. FAMILY HISTORY: Mother is alive, unknown medical history. Father is alive, apparently has history of congestive heart failure, sleep apnea, also history of colon and lung cancer. Apparently, grandparents with history of CAD. MEDICATIONS: Include citalopram 20 mg daily, fish oil 1200 mg daily, fluconazole spray daily, folic acid 1 mg p.o. daily, levocetirizine 5 mg daily, levothyroxine 150 mcg daily, meloxicam 15 mg p.o. daily, methotrexate 17.5 mg every Friday, Singulair 10 mg p.o. daily, and Protonix 40 mg daily. ALLERGIES: PENICILLIN, CLARITHROMYCIN. REVIEW OF SYSTEMS: GENERAL: Denies any weight changes, fatigue, weakness, fevers, chills, night sweats. SKIN: Denies any rashes, sores. HEENT: Positive for nausea. Denies any vomiting. Positive for blurred vision, which is chronic. Denies any earaches, any discharge. Positive for sinus drainage. Denies any hoarseness, sore throat. CARDIAC: Chest pain as above. Positive for dyspnea on exertion. Denies any orthopnea, PND. Positive for intermittent lower extremity edema. RESPIRATORY: Positive for dyspnea on exertion. Denies any cough or hemoptysis. GI: Denies any decrease in appetite. Denies any vomiting. Positive for nausea. Positive for intermittent diarrhea. Denies any bleeding issues such as melena, hematochezia. URINARY: Denies any frequency, urgency, hematuria, dysuria. VASCULAR: Intermittent lower extremity edema. Denies any claudication. MUSCULOSKELETAL: Reports good muscle strength throughout. Positive for chronic back pains in lower back. HEMATOLOGY: Denies any anemia, easy bruising. ENDOCRINE: Denies any heat or cold intolerance. No polyuria, polydipsia, or polyphagia. PHYSICAL EXAMINATION: VITAL SIGNS: Height 64 inches, weight 280 pounds with a BMI of 48. Temperature 97.8, pulse 59, respiratory rate 20, blood pressure 129/66, pulse ox 97% on room air. GENERAL: Appears stated age, obesity, in no acute distress. SKIN: No rashes or bruises noted. HEENT: Normocephalic. Pupils are equal and reactive. Extraocular movements intact. Oral mucosa pink. NECK: Trachea midline. No thyromegaly noted. HEART: Regular rate and rhythm. PMI about 4th 5th intercostal space. LUNGS: Bilateral breath sounds clear to auscultation. Good airway entry. ABDOMEN: Soft, nontender, nondistended. No organomegaly noted. MUSCULOSKELETAL: Good muscle strength throughout. Slight lower extremity edema noted. VASCULAR: +2 bilateral radial pulses. +1 DP, PT pulses bilaterally. NEUROLOGIC: Cranial nerves 2 through 12 seem intact. LABORATORY DATA: Sodium 141, potassium 3.9, BUN 8, creatinine 0.7. Troponin less than 0.001 x3. LDL 74, HDL 54. TSH 0.09. EKG showing normal sinus rhythm. ASSESSMENT: 1. Chest pain. 2. Palpitations. 3. Hypertension. 4. Lupus. 5. Obesity. 6. Hypothyroidism related to thyroid medication. PLAN: 1. The patient presents with chest pain with mixed features, negative enzymes thus far, has not had any more episode prior to admission. However, the patient is very concerned with cardiac status since she has apparently family history of heart failure and grandparents have CAD and wants to have ischemic evaluation, so we will go ahead an exercise stress test to evaluate for symptoms. 2. Echo has been done, will be reviewed with Cardiology attending. 3. Regarding TSH, we will leave that up to primary service. 4. Further recommendations post stress test. Thank you very much for this consult. Dictated by Jayesh Herrera NP Yon Hewitt MD DC/SUZANNE /[id number]
--- NOTE | 2018-08-20 18:15 | NUR ---
Patient cleared by cardiology for discharge. Call to Dr. Aranda and orders in place to discharge patient. Provided patient with contact information for f/u appointments, IV line removed and cath tip in place, dressing applied and patient discharged.
--- NOTE | 2018-08-20 20:55 | Operative Report ---
DATE OF PROCEDURE: 08/20/2018 SURGEON: Yon Hewitt MD TITLE OF THE TEST: Cardiac stress test. TECHNICAL DETAILS: The protocol is a Amilcar with target heart rate at 143 per minute. RESULTS: 1. The patient exercised for a total of 6 minutes. 2. Heart rate increased from 57 per minute to 143 per minute. 3. Blood pressure increased from 150/90 to 177/90. 4. No chest pain. 5. No EKG changes. IMPRESSION: Negative cardiac stress test. Limitations of negative cardiac stress test are discussed with the patient and later with her . Yon Hewitt MD MOJ/MODL /[id number]
--- NOTE | 2018-08-21 08:53 | Discharge Summary ---
DISCHARGE DIAGNOSES: 1. Chest pain, rule out myocardial infarction. 2. Hypertension. 3. Lupus. HISTORY OF PRESENT ILLNESS AND HOSPITAL COURSE: See hospital chart for full details. The patient is a lady, who presented with some chest pain, midsternal with atypical where she did also notice some elevated blood pressures in the emergency room. She was bought in, placed on a blood pressure medicine, which helped improve her blood pressure tremendously. She ruled out for LA by serial enzymes and EKG. She was seen by Cardiology, who did a CT scan per PE protocol, which was negative and she was treated by Cardiology. She was able to be discharge home and follow up in 1-2 weeks by both me and Cardiology. Please see hospital chart for full details. MD HIPOLITO Heredia/SUZANNE /[id number]
[2018-08-21] MEDS ORDERED: FLUTICASONE PROPIONATE NASAL SPRAY NS SCH (09:00)
[2018-08-22] MEDS ORDERED: METHOTREXATE SOD 2.5 MG TAB PO SCH (09:00)
--- NOTE | 2018-08-25 18:08 | EXERCISE STRESS TEST ---
DATE OF STUDY: 08/20/2018 11:02:00 Stress Test - Treadmill ONLY TITLE OF THE TEST: Cardiac stress test. TECHNICAL DETAILS: The protocol is a Amilcar with target heart rate at 143 per minute. RESULTS: 1. The patient exercised for a total of 6 minutes. 2. Heart rate increased from 57 per minute to 143 per minute. 3. Blood pressure increased from 150/90 to 177/90. 4. No chest pain. 5. No EKG changes. IMPRESSION: Negative cardiac stress test. Limitations of negative cardiac stress test are discussed with the patient and later with her . MD AILYN Ingram/MODL /[id number]
== END 2018-08-20 18:29 | disposition home or self-care (01) ==
LOC: ER 13:56 → ERHOLD 18:05 → INTOOBSV 18:05 → MED/SURG2 21:35
PROVIDERS: ADMIT Internal Medicine; ATTEND Internal Medicine
DX: R07.9 Chest pain, unspecified (principal); M32.9 Systemic lupus erythematosus, unspecified; I10 Essential (primary) hypertension; Z88.1 Allergy status to other antibiotic agents; Z88.0 Allergy status to penicillin; E66.9 Obesity, unspecified; Z90.49 Acquired absence of other specified parts of digestive tract; F41.9 Anxiety disorder, unspecified; R00.2 Palpitations; E03.9 Hypothyroidism, unspecified; G47.33 Obstructive sleep apnea (adult) (pediatric); Z68.42 Body mass index [BMI] 45.0-49.9, adult
CPT/HCPCS: 36415; 71046; 71260; 80053; 80061; 81001; 81025; 82550 ×2; 82553 ×2; 83735; 84443; 84484 ×2; 85025; 85610; 85730; 93005; 93017; 93306; 99284; G0378 ×2; Q9967; S0164

== ENCOUNTER 2018-08-26 01:58 | Observation (INO) | payer OTHER ==
[~2018-08-26] VITALS: Ht 162.6 cm; Wt 129.3 kg
[~2018-08-26 01:58] MED LIST changes: +FISH OIL 1,2001 EACH PO; +MELOXICAM7.5 MG PO; +XYZAL5 MG PO
[2018-08-26] MEDS ORDERED: DILTIAZEM HCL VIAL 5 ML ONE (02:10)
[2018-08-26] MEDS ORDERED: DILTIAZEM HCL 5 MG/ML 5 ML VIAL IV ONE (02:15)
[2018-08-26 02:17] LABS: BASOPHILS # (AUTO) 0.1 (0.0-0.1); BASOPHILS % 0.5 % (0.0-1.0); EOSINOPHILS # (AUTO) 0.2 (0.0-0.4); EOSINOPHILS % 1.9 % (0.0-6.0); HEMATOCRIT 44.4 % (34.2-44.1); HEMOGLOBIN 14.8 g/dL (12.0-16.0); LYMPHOCYTES # (AUTO) 2.8 (1.0-3.2); LYMPHOCYTES % 28.4 % (18.0-39.1); MEAN CORPUSCULAR HEMOGLOBIN 30.8 pg (28-32); MEAN CORPUSCULAR HGB CONC 33.3 g/dL (31-35); MEAN CORPUSCULAR VOLUME 92.5 fL (81-99); MONOCYTES # (AUTO) 0.8 (0.2-0.8); MONOCYTES % 7.7 % (4.4-11.3); NEUTROPHILS # (AUTO) 6.1 (2.1-6.9); NEUTROPHILS % 61.3 % (38.7-80.0); PLATELET COUNT 261 x10e3/uL (140-360); RED CELL DISTRIBUTION WIDTH 13.3 % (11.7-14.4)
[2018-08-26] MEDS: LACTATED RINGER'S 1,000 ML IV SCH ×2 (02:31→17:36)
--- NOTE | 2018-08-26 02:49 | NUR ---
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 noted converted to sr on monitor. dr brand informed.
[2018-08-26 03:07] LABS: ALANINE AMINOTRANSFERASE 40 IU/L (0-55); ALBUMIN 3.7 g/dL (3.5-5.0); ALBUMIN/GLOBULIN RATIO 0.9 (0.8-2.0); ALKALINE PHOSPHATASE 67 IU/L (40-150); BLOOD UREA NITROGEN 11 mg/dL (7-26); BUN/CREATININE RATIO 15 (6-25); CALCIUM 10.2 mg/dL (8.4-10.2); CARBON DIOXIDE 23 mmol/L (22-29); CREATINE KINASE 56 IU/L (29-168); CREATININE, SERUM 0.72 mg/dL (0.57-1.11); EST GLOMERULAR FILTRATION RATE > 60 ML/MIN (60-); GLUCOSE 116 mg/dL (74-118)
[2018-08-26] MEDS ORDERED: SODIUM CHLORIDE 0.9% 500ML 500 ML ONE (03:10)
--- NOTE | 2018-08-26 03:10 | Diagnostic Imaging Report ---
Examination: Single AP view of the chest. COMPARISON: Chest 2 views 08/19/2018. CT chest 08/20/2018 INDICATION: Increased heart rate, chest tightness IMPRESSION: 1. Lines and Tubes: None 2. Lungs are grossly clear. No consolidation or effusion. 3. Cardiomediastinal silhouette is normal. Pulmonary vasculature is normal. 4. No acute bony abnormalities. Signed by: Dr. Jake Walker M.D. on 08/26/2018 3:07 AM
[2018-08-26 03:15] LABS: CHLORIDE 105 mmol/L (98-107); MAGNESIUM 2.3 MG/DL (1.3-2.1); SODIUM 139 mmol/L (136-145)
[2018-08-26] MEDS ORDERED: ONDANSETRON HCL INJ 2MG/ML 2ML 2 MG/ML VIAL IV PRN (03:15)
[2018-08-26] MEDS ORDERED: IBUPROFEN 200 MG TAB PO PRN (03:15)
[2018-08-26] MEDS ORDERED: ZOLPIDEM TARTRATE 5 MG TAB PO PRN (03:15)
[2018-08-26] MEDS ORDERED: CLONIDINE HCL 0.1 MG TAB PO PRN (03:15)
[2018-08-26] MEDS ORDERED: HYDROCODONE/APAP 7.5MG-325MG 1 EA TAB PO PRN (03:15)
[2018-08-26] MEDS ORDERED: DIPHENHYDRAMINE HCL INJ 50 MG/ML VIAL IV PRN (03:15)
[2018-08-26] MEDS ORDERED: SODIUM CHLORIDE 0.9% 1000ML 500 ML IV SCH (03:15)
[2018-08-26] MEDS ORDERED: ENOXAPARIN SOD INJ 60 MG/0.6 ML SYR SC ONE (03:15)
[2018-08-26] MEDS ORDERED: ENALAPRILAT IV INJ 1.25 MG/ML VIAL IV PRN (03:15)
[2018-08-26] MEDS ORDERED: ACETAMINOPHEN 325 MG TAB PO PRN (03:15)
[2018-08-26] MEDS: FAMOTIDINE 20 MG/2 ML VIAL IV SCH ×2 (08:15→17:36)
--- NOTE | 2018-08-26 10:23 | NUR ---
pt placed in hosp bed
[2018-08-26 10:25] LABS: CREATINE KINASE 29 IU/L (29-168)
[2018-08-26 15:56] VITALS: BP 159/82
[2018-08-26 17:17] VITALS: BP 159/82
--- NOTE | 2018-08-26 18:39 | Consultation ---
DATE OF CONSULTATION: 08/26/2018 REASON FOR CONSULTATION: Atrial fibrillation with rapid ventricular response. HISTORY: A 53-year-old lady with known lupus, hypothyroidism, diverticulosis, asthma, obstructive sleep apnea. The patient uses CPAP at home. She is obese, she does have severe reflux, she does have retinal disease. She came to this institution on August 20, 2018, with chest pain with high blood pressure. At that time, we did a cardiac stress test. She exercised for a total of 6 minutes with no chest pain and no EKG changes. She was dismissed home on medication. 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 She awakened up from her sleep with palpitation. She checked her blood pressure cuff and her heart rate was at 160. She felt shortness of breath with it. She came to the emergency room, she was in atrial fibrillation with rapid ventricular response. She was given Cardizem 20 mg intravenously and with that, she converted back to normal sinus rhythm. She is doing well. She denied having any angina. She denies having any cough, any pleuritic chest pain. There is no recent travel. There is no orthopnea, no paroxysmal nocturnal dyspnea. She does have sleep apnea like symptoms. PAST MEDICAL HISTORY: Lupus, hypothyroidism, diverticulosis, Rodarte esophagus, asthma, obstructive sleep apnea on CPAP, obesity, reflux, retinal disease, left knee surgery, right wrist cyst removal. SOCIAL HISTORY: . She works at [employer]. She is nonsmoker and nonalcohol drinker. FAMILY HISTORY: Mother is alive, doing well. Father is alive and has history of congestive heart failure and colon and lung cancer. Grandparents with coronary artery disease. HOME MEDICATIONS: Include citalopram 20 mg a day, fish oil 1200 mg a day, fluconazole, folic acid, levocetirizine, levothyroxine, meloxicam, methotrexate, Singulair, Protonix. ALLERGIES: PENICILLIN AND CLARITHROMYCIN. REVIEW OF SYSTEMS: GENERAL: No fever, no chills. SKIN: No rashes. HEENT: Unremarkable. CARDIAC: As per acute illness. PULMONARY: Sleep apnea, on CPAP. GI: No hematemesis, no melena. : No hematuria, no dysuria. MUSCULOSKELETAL: Occasional muscle aches. HEMATOLOGICAL: No easy bruising or bleeding. ENDOCRINE: There is no diabetes, no intolerance to hot or cold weather. PHYSICAL EXAMINATION: VITAL SIGNS: Height of 5 feet 4 inches, weight of 280, blood pressure 130/80, respiratory rate of 18. HEENT: Pupils are reactive. NECK: No elevation of jugular venous pulsation. CHEST: Decreased air entry, but clear to auscultation and percussion. HEART: PMI 5th intercostal space. Normal first and second heart sounds. ABDOMEN: Soft. There are good bowel sounds. EXTREMITIES: No cyanosis, no clubbing, no edema. NEUROLOGIC: Nonfocal. LABORATORY DATA: Sodium of 139, potassium of 4, BUN of 11, creatinine of 0.7. White blood cell count of 9.9, hemoglobin of 14.8, hematocrit 44%, platelet count of 261,000. IMPRESSION: 1. Atrial fibrillation with rapid ventricular response. 2. Obesity. 3. Sleep apnea. 4. Hypertension. 5. Lupus. 6. Hypothyroidism. RECOMMENDATION: The patient will be on telemetry. We will add Cardizem to her medical regimen. We will check her thyroid function test. We will keep her on telemetry. We will consult EP for further recommendation. Pending on the EP input and the patient, we can decide about further steps. Care is discussed and explained, questions are answered. MD AILYN Ingram/SUZANNE /[id number]
--- NOTE | 2018-08-26 19:39 | NUR ---
Got report from previous nurse. call light within reach. Patient in bed. A&O x 3. No pain or distress.
[2018-08-26 19:44] LABS: CREATINE KINASE 25 IU/L (29-168)
[2018-08-26 20:00] VITALS: BP 171/77
[2018-08-26 20:47] VITALS: BP 171/77
[2018-08-26] MEDS: MONTELUKAST SODIUM 10 MG TAB PO SCH (20:47)
[2018-08-26] MEDS ORDERED: IBUPROFEN 400 MG TAB PO PRN (21:15)
[2018-08-27] VITALS (11 sets, daily range): BP systolic 144–163; BP diastolic 70–85
--- NOTE | 2018-08-27 01:26 | History and Physical ---
CHIEF COMPLAINT: This is a 53-year-old female with a history of palpitation for the last day. HISTORY OF PRESENT ILLNESS: Ms. Shelby Brown, who was recently in the hospital, came in with palpitation. At that time, the patient had extensive studies done including a stress test, which is negative. Echocardiogram was negative. The patient yesterday woke up in the middle of the night with palpitations. She went and had a drink of water, came back, used a CPAP machine and at that time, the patient had put on a FitBit, which recorded 137. The patient came to the emergency room, was noted to be in atrial fibrillation with RVR of 150. The patient was given Cardizem and the patient converted back to normal sinus rhythm. The patient did have feeling of choking and also neck pain and also left arm numbness at the time of palpitations. PAST MEDICAL HISTORY: History of asthma and allergy, history of hypothyroidism, history of osteoarthritis, history of lupus erythematosus, history of reflux esophagitis, history of Rodarte's esophagitis, history of diverticulitis, history of retinal telangiectasias and macular problems. MEDICATIONS: Include Astelin nasal spray, citalopram for depression 20 mg daily, fish oil 4 tablets a day, fluticasone propionate nasal spray, folic acid 1 mg per day, levocetirizine (Xyzal) 5 mg daily, levothyroxine 150 mcg daily, liothyronine 5 mcg daily, meloxicam 7.5 mg daily, methotrexate 17.5 mg on Friday, montelukast 10 mg daily, and pantoprazole 40 mg daily. PAST SURGICAL HISTORY: See medical record sheet. FAMILY HISTORY: Positive for sleep apnea. Positive for colon cancer, history of diverticulitis in the family. History of coronary artery disease, myocardial infarction, and stroke in the family. SOCIAL HISTORY: No EtOH, no IV drug abuse, and no history of smoking either. REVIEW OF SYSTEMS: Negative for chest pain. Positive for neck pain. Positive for palpitation. Positive for nausea. No vomiting. No diarrhea. No constipation. No rectal bleeding. No hematochezia. No hematemesis. No diplopia. No blurry vision either. ALLERGIES: THE PATIENT IS ALLERGIC TO PENICILLIN AND CLARITHROMYCIN. PHYSICAL EXAMINATION: GENERAL: The patient is alert and oriented x3. VITAL SIGNS: Temperature 96.6, pulse at this time is 59, respirations of 18, blood pressure is 159/82. HEENT: Normocephalic, atraumatic. Pupils are reactive to light and accommodation. CVS: S1 and S2. Bradycardic. ABDOMEN: Nontender, nondistended. EXTREMITIES: No clubbing, no cyanosis, no edema. IMAGING STUDIES: Chest x-ray done this morning shows lines and tubes. Lungs look grossly clear. No acute abnormality seen. LABORATORY VALUES: Her white count is 9.95, hematocrit of 44.4, hemoglobin of 14.8. Chemistry showed a TSH of 0.011, magnesium of 2.3, BUN of 11, creatinine of 0.72. ASSESSMENT: 1. Atrial fibrillation with rapid ventricular response. 2. Sick sinus syndrome. 3. Hypothyroidism, I will correct it. 4. Hypertension. 5. History of sleep apnea. 6. Rodarte's esophagus. 7. Morbid obesity. 8. History of hypertension. PLAN: To consult EP. We will cut down her liothyronine from her regimen. Recheck thyroid on a later date. Continue to monitor the patient. CPAP to be given per RT. Dr. Rankin and Dr. Hewitt have been consulted. Further recommendation per clinical course. The patient's troponin also have been trended to be negative so far. MD ERIC CanasJ/MODL /[id number]
[2018-08-27 05:53] LABS: BASOPHILS % 0.5 % (0.0-1.0); EOSINOPHILS # (AUTO) 0.2 (0.0-0.4); EOSINOPHILS % 1.9 % (0.0-6.0); HEMATOCRIT 38.5 % (34.2-44.1); HEMOGLOBIN 12.2 g/dL (12.0-16.0); LYMPHOCYTES # (AUTO) 2.4 (1.0-3.2); MEAN CORPUSCULAR HEMOGLOBIN 30.5 pg (28-32); MEAN CORPUSCULAR HGB CONC 31.7 g/dL (31-35); MEAN CORPUSCULAR VOLUME 96.3 fL (81-99); MONOCYTES # (AUTO) 0.6 (0.2-0.8); MONOCYTES % 7.5 % (4.4-11.3); NEUTROPHILS # (AUTO) 5.1 (2.1-6.9); NEUTROPHILS % 60.6 % (38.7-80.0); PLATELET COUNT 212 x10e3/uL (140-360); RED CELL DISTRIBUTION WIDTH 13.6 % (11.7-14.4)
[2018-08-27] MEDS ORDERED: LEVOTHYROXINE SODIUM 75 MCG TAB PO SCH (06:00)
[2018-08-27 06:22] LABS: ALANINE AMINOTRANSFERASE 29 IU/L (0-55); ALBUMIN 3.1 g/dL (3.5-5.0); ALKALINE PHOSPHATASE 48 IU/L (40-150); ANION GAP 9.2 mmol/L (8-16); BLOOD UREA NITROGEN 10 mg/dL (7-26); BUN/CREATININE RATIO 13 (6-25); CALCIUM 9.6 mg/dL (8.4-10.2); CARBON DIOXIDE 30 mmol/L (22-29); CHLORIDE 103 mmol/L (98-107); CHOLESTEROL 140 MD/DL (0-199); CREATININE, SERUM 0.77 mg/dL (0.57-1.11); EST GLOMERULAR FILTRATION RATE > 60 ML/MIN (60-); GLUCOSE 102 mg/dL (74-118); HDL CHOLESTEROL 47 MG/DL (40-60); LDL CHOLESTEROL 75 MG/DL (60-130); POTASSIUM 4.2 mmol/L (3.5-5.1); SODIUM 138 mmol/L (136-145); TRIGLYCERIDES 91 MG/DL (0-149)
[2018-08-27 06:58] LABS: FREE THYROXINE INDEX 2.7758 (1.4-3.8); THYROID STIMULATING HORMONE 0.013 uIU/mL (0.350-4.940)
--- NOTE | 2018-08-27 07:19 | NUR ---
GAVE REPORT TO ONCOMING NURSE. CALL LIGHT WITHIN REACH. PATIENT IN BED. PATIENT IN NO PAIN OR DISTRESS.
[2018-08-27] MEDS: CITALOPRAM HYDROBROMIDE 20 MG TAB PO SCH (08:41)
[2018-08-27] MEDS: LORATADINE 10 MG TAB PO SCH (08:41)
[2018-08-27] MEDS: FAMOTIDINE 20 MG/2 ML VIAL IV SCH ×2 (08:41→17:18)
[2018-08-27] MEDS: FOLIC ACID 1 MG TAB PO SCH (08:41)
[2018-08-27] MEDS: LACTATED RINGER'S 1,000 ML IV SCH (08:41)
[2018-08-27] MEDS: PANTOPRAZOLE SOD 40 MG TABEC PO SCH (08:41)
[2018-08-27] MEDS ORDERED: NON-FORMULARY MEDICATION (Levothyroxine Sodium 150 MCG) PO SCH (09:00)
[2018-08-27] MEDS: APIXABAN 5 MG TABLET PO SCH (17:18)
--- NOTE | 2018-08-27 18:47 | NUR ---
Got report to previous nurse. Call light within reach. A&Ox3. Patient in bed.
[2018-08-27] MEDS: MONTELUKAST SODIUM 10 MG TAB PO SCH (21:04)
[2018-08-27] MEDS: FLECAINIDE ACETATE 100 MG TAB PO SCH (22:39)
[2018-08-28 00:38] VITALS: BP 158/70
--- NOTE | 2018-08-28 02:22 | Consultation ---
DATE OF CONSULTATION: 08/27/2018 REASON FOR CONSULTATION: Atrial fibrillation. HISTORY OF PRESENT ILLNESS: This is a 53-year-old woman with history of atrial fibrillation with rapid ventricular response, history of thyroid disease, and morbid obesity, who presented with atrial fibrillation with rapid ventricular response. She received Cardizem, converted to sinus rhythm. She has remained sinus bradycardia at the moment, no syncope. REVIEW OF SYSTEMS: CONSTITUTIONAL: Negative. CARDIOVASCULAR: Palpitations. RESPIRATORY: Negative. GASTROINTESTINAL: Negative. GENITOURINARY: Negative. MUSCULOSKELETAL: Negative. EYES: Negative. ENT: Negative. ALLERGIC/IMMUNOLOGIC: Negative. PSYCHIATRIC: Negative. PAST MEDICAL HISTORY: Atrial fibrillation, hypothyroidism. SOCIAL HISTORY: Denies alcohol or smoking. FAMILY HISTORY: No premature coronary artery disease. PAST SURGICAL HISTORY: Negative. PHYSICAL EXAMINATION: VITAL SIGNS: Blood pressure 138/60, pulse 50, respirations 20, and O2 sats 98%. GENERAL: No acute distress. HEENT: Moist mucous membranes. CARDIOVASCULAR: Irregular. RESPIRATORY: Clear. ABDOMEN: Soft, nontender. MUSCULOSKELETAL: 2+ pedal pulses. NEUROLOGIC: No focal deficits. SKIN: No lesions. PSYCHIATRIC: Normal thought process. IMAGING DATA: EKG, sinus bradycardia. EKG on admission demonstrated atrial fibrillation/atrial flutter. IMPRESSION: 1. Paroxysmal atrial fibrillation/atrial flutter, highly symptomatic. 2. Morbid obesity. RECOMMENDATIONS: I had a long discussion with the patient. The antiarrhythmic therapies are limited due to bradycardia, explained the alternative options including the ablation. The patient wishes to proceed, we went over detail with benefits and risks. All questions were answered. In the meantime, recommend to start flecainide and I will monitor on telemetry. If she can tolerate it fine, then she can be discharged on flecainide 50 mg every 12 hours while we schedule an ablation procedure over the next few weeks at [place]. The patient is to follow up with her primary care physician as well to adjust the thyroid medicine as well, in the meantime, continue Eliquis. Thank you for letting us participate in Ms. Brown's healthcare. MD LEO Infante/MODL /[id number]
[2018-08-28 05:05] VITALS: BP 134/69
[2018-08-28] MEDS ORDERED: LEVOTHYROXINE SODIUM 75 MCG TAB PO SCH (06:00)
--- NOTE | 2018-08-28 07:22 | NUR ---
Patient is awake and alert x4, resting in bed without any complaints voiced at this time. Patient is aware she will go home after Dr. Kash esparza. Tele#4, SR@62. Bed in lowest position, locked and call masterson within reach.
--- NOTE | 2018-08-28 07:23 | NUR ---
Gave report to oncoming nurse. Patient A&Ox3. Call light within reach. Patient in bed.
--- NOTE | 2018-08-28 07:28 | Progress Note ---
DATE: SUBJECTIVE: The patient came in with atrial fibrillation with RVR. Seen by Dr. Yunior Ramirez. The patient has agreed for an ablation as an outpatient basis. The patient has been started on Eliquis and also started on flecainide. The patient's plan is to be discharged today and to be follow up with Dr. Ramirez on a later date to consult for ablation. Currently, the patient is asymptomatic. No palpitations. No chest pains either. OBJECTIVE: VITAL SIGNS: Temperature is 96.6, pulse of 82, respirations of 20, blood pressure is 135/69. HEENT: Normocephalic, atraumatic. Pupils are reactive to light and accommodation CVS: S1, S2 normal. Regular rate and rhythm. ABDOMEN: Nontender, nondistended. EXTREMITIES: No clubbing, no cyanosis, no edema. MEDICATIONS: She is on flecainide 50 mg q.12 hours, apixaban 5 mg twice a day, which has been added. Rest of the medication continued to be the same. ASSESSMENT: 1. Paroxysmal atrial fibrillation with atrial flutter, symptomatic. 2. Morbid obesity. 3. Hypertension. 4. History of sleep apnea. 5. Rodarte's esophagus. 6. Morbid obesity. PLAN: Continue with monitoring the patient. Further recommendation per clinical course. The patient has to be on a CPAP and we will discharge the patient on flecainide and Eliquis, to be followed by Dr. Ramirez later. MD ERIC CanasJ/MODL /[id number]
[2018-08-28 08:23] VITALS: BP 158/70
[2018-08-28] MEDS ORDERED: ONDANSETRON HCL 4 MG ORAL DISINTEGRATING TAB PO PRN (09:00)
[2018-08-28] MEDS ORDERED: LOSARTAN POTASSIUM 100 MG TAB PO SCH (09:00)
[2018-08-28] MEDS: FOLIC ACID 1 MG TAB PO SCH (09:52)
[2018-08-28] MEDS: CITALOPRAM HYDROBROMIDE 20 MG TAB PO SCH (09:52)
[2018-08-28] MEDS: FLECAINIDE ACETATE 100 MG TAB PO SCH (09:52)
[2018-08-28] MEDS: FAMOTIDINE 20 MG/2 ML VIAL IV SCH (09:52)
[2018-08-28] MEDS: PANTOPRAZOLE SOD 40 MG TABEC PO SCH (09:52)
[2018-08-28] MEDS: APIXABAN 5 MG TABLET PO SCH (09:52)
[2018-08-28] MEDS: LORATADINE 10 MG TAB PO SCH (09:52)
[2018-08-28 12:00] VITALS: BP 158/70
[2018-08-28 12:30] VITALS: BP 167/64
--- NOTE | 2018-08-28 15:12 | NUR ---
Dr. Hewitt rounding and cleared patient for discharge. Rx written and given to patient.
[2018-08-28] MEDS ORDERED: LOSARTAN POTASS25 MG PO (15:28)
[2018-08-28] MEDS ORDERED: eliquis PO (15:29)
[2018-08-28] MEDS ORDERED: FLECAINIDE ACE100 MG PO (15:29)
--- NOTE | 2018-08-28 16:20 | NUR ---
Patient discharged home with written instructions and prescription. Both patient and spouse verbalzied understanding. IV dc'd, cath intact and small dressing applied. No bleeding or hematoma noted
[2018-08-28] MEDS ORDERED: FAMOTIDINE 20 MG TAB PO SCH (16:30)
== END 2018-08-28 16:20 | disposition home or self-care (01) ==
LOC: ER 01:58 → ERHOLD 03:40 → IMCU 15:40
PROVIDERS: ADMIT Internal Medicine; ATTEND Internal Medicine
DX: I48.0 Paroxysmal atrial fibrillation (principal); Z88.1 Allergy status to other antibiotic agents; Z88.0 Allergy status to penicillin; I10 Essential (primary) hypertension; G47.33 Obstructive sleep apnea (adult) (pediatric); M32.9 Systemic lupus erythematosus, unspecified; R00.2 Palpitations; E03.9 Hypothyroidism, unspecified; Z80.0 Family history of malignant neoplasm of digestive organs; Z82.49 Family history of ischemic heart disease and other diseases of the circulatory system; Z83.79 Family history of other diseases of the digestive system; Z84.89 Family history of other specified conditions; I49.5 Sick sinus syndrome; K22.70 Barrett's esophagus without dysplasia; G47.30 Sleep apnea, unspecified; E66.01 Morbid (severe) obesity due to excess calories; I48.92 Unspecified atrial flutter; Z68.42 Body mass index [BMI] 45.0-49.9, adult; J30.1 Allergic rhinitis due to pollen
CPT/HCPCS: 36415 ×2; 71045; 80053 ×2; 80061; 82550; 82553; 83735; 83880; 84436; 84443 ×2; 84479; 84484; 85025 ×2; 93005 ×2; 99285; G0378 ×3; J1650; J7040; J7121 ×2; S0164 ×2

== ENCOUNTER 2018-10-08 22:52 | Inpatient (IN) | payer OTHER ==
[~2018-10-08] VITALS: Ht 162.6 cm; Wt 128.9 kg
[~2018-10-08 22:52] MED LIST changes: +FLECAINIDE ACE100 MG PO; +LOSARTAN POTASS25 MG PO; +eliquis PO
--- OUTSIDE RECORDS SUMMARY | 2018-10-08 22:55 | XMS REPORT | Continuity of Care Document ---
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 Role Phone [employer] Information [facility] Unavailable Unavailable Problems Problem Status Onset Date Classification [...] Rhinitis Due to Pollen Problem 06/09/2016 [facility] Atrial fibrillation with RVR Active Problem 08/28/2018 [facility] Chest pain Active Problem 08/28/2018 [facility] Dehydration Active Problem 08/28/2018 [facility] Intractable vomiting Active Problem 08/28/2018 [facility] Medications Medication Details Route Status Patient Instructions Ordering Provider Order Date Source Azelastine hydrochloride 0.137 MG/ACTUAT Metered Dose Nasal [place] azelastine 137 mcg (0.1 %) nasal spray [...] Fluticasone propionate 0.05 MG/ACTUAT Metered Dose Nasal [place] fluticasone 50 mcg/actuation nasal spray,suspension Inhale 1 [...] mometasone furoate 0.05 MG/ACTUAT Metered Dose Nasal [place] [Nasonex] Nasonex 50 mcg/actuation [place] Active [facility] 24 HR phendimetrazine tartrate 105 [...] misoprostol 200 mcg tablet Active [facility] Nystatin [id number] UNT/ML Oral Suspension nystatin 100,000 unit/mL oral [...] 37.5 mg-acetaminophen 325 mg tablet Active [facility] Azelastine Hcl 137 Mcg/0.137 Ml [place].pump Twice A Day Active [facility] Citalopram Hydrobromide (Citalopram Hbr) 20 Mg Tablet Daily Active [facility] Eliquis Twice A Day Active [facility] Fish Oil/Dha/Epa (Fish Oil 1,200 Mg Fish Oil) 1 Each Capsule Daily Active [facility] Flecainide Acetate 100 Mg Tablet Twice A Day Active [facility] Fluticasone Propionate 16 Gm [place].susp Daily Active [facility] Folic Acid 1 Mg Tablet Daily Active [facility] Levocetirizine Dihydrochloride (Xyzal) 5 Mg Tablet Daily Active THERAPEUTICALLY SUBSTITUTED WITH LORATADINE [facility] Levothyroxine Sodium 150 Mcg Tablet Daily Active [facility] Liothyronine Sodium 5 Mcg Tablet Daily Active [facility] Losartan Potassium 25 Mg Tablet Daily Active [facility] Meloxicam 7.5 Mg Tablet Daily Active [facility] Methotrexate Sodium (Methotrexate) 2.5 Mg Tablet .friday Active [facility] Montelukast Sodium 10 Mg Tablet Daily Active [facility] Pantoprazole Sodium (Protonix) 40 Mg Tablet.dr [place] Active [facility] Allergies, Adverse Reactions, Alerts Substance Category Reaction Severity Reaction type Status Date Reported Comments Source Biaxin Nausea Allergy to substance 03/03/2009 [facility] Penicillins Other Severe Allergy to substance 03/03/2009 [facility] Penicillin Mild Allergy to Substance Active 08/06/2009 [facility] Clindamycin Respiratory distress Allergy to substance 04/06/2014 [facility] Clarithromycin Unknown Allergy to Substance Active 04/01/2018 [facility] Immunizations Immunization Date Given Site Status Last Updated Comments Source influenza, seasonal, injectable 01/12/2015 completed [facility] Influenza A monovalent (H5N1), ADJUVANTED-2013 01/12/2014 completed [facility] influenza, unspecified formulation 01/25/2013 completed [facility] Tdap 04/14/2006 completed [facility] Results Order Name Results Value Reference Range Date Interpretation Comments Source Blood leukocytes automated count (number/volume) 8.42 4.8 - 10.8 08/27/2018 [facility] Blood erythrocytes automated count (number/volume) 4.00 3.6 - 5.1 08/27/2018 [facility] Blood hemoglobin measurement (moles/volume) 12.2 12.0 - 16.0 08/27/2018 [facility] Automated blood hematocrit (volume fraction) 38.5 34.2 - 44.1 08/27/2018 [facility] Automated erythrocyte mean corpuscular volume 96.3 81 - 99 08/27/2018 [facility] Automated erythrocyte mean corpuscular hemoglobin (mass per erythrocyte) 30.5 28 - 32 08/27/2018 [facility] Automated erythrocyte mean corpuscular hemoglobin concentration measurement (mass/volume) 31.7 31 - 35 08/27/2018 [facility] RDW BldCo-Rto 13.6 11.7 - 14.4 08/27/2018 [facility] Automated blood platelet count (count/volume) 212 140 - 360 08/27/2018 [facility] Automated blood segmented neutrophil count as percentage of total leukocytes 60.6 38.7 - 80.0 08/27/2018 [facility] Automated blood lymphocyte count as percentage ot total leukocytes 29.0 18.0 - 39.1 08/27/2018 [facility] Automated blood monocyte count as percentage of total leukocytes 7.5 4.4 - 11.3 08/27/2018 [facility] Automated blood eosinophil count as percentage of total leukocytes 1.9 0.0 - 6.0 08/27/2018 [facility] Automated blood basophil count as percentage of total leukocytes 0.5 0.0 - 1.0 08/27/2018 [facility] IM GRANULOCYTES % 0.5 0.0 - 1.0 08/27/2018 [facility] Automated blood neutrophil count 5.1 2.1 - 6.9 08/27/2018 [facility] Blood lymphocytes count (number/volume) 2.4 1.0 - 3.2 08/27/2018 [facility] Blood monocytes automated count (number/volume) 0.6 0.2 - 0.8 08/27/2018 [facility] Automated blood eosinophil count 0.2 0.0 - 0.4 08/27/2018 [facility] Automated blood basophil count (count/volume) 0.0 0.0 - 0.1 08/27/2018 [facility] Absolute Immature Granulocyte (auto 0.04 0 - 0.1 08/27/2018 [facility] Serum or plasma sodium measurement (moles/volume) 138 136 - 145 08/27/2018 [facility] Serum or plasma potassium measurement (moles/volume) 4.2 3.5 - 5.1 08/27/2018 [facility] Serum or plasma chloride measurement (moles/volume) 103 98 - 107 08/27/2018 [facility] Serum or plasma carbon dioxide, total measurement (moles/volume) 30 22 - 29 08/27/2018 [facility] Serum or plasma anion gap 9.2 8 - 16 08/27/2018 [facility] Serum or plasma urea nitrogen measurement (mass/volume) 10 7 - 26 08/27/2018 [facility] Serum or plasma creatinine measurement (mass/volume) 0.77 0.57 - 1.11 08/27/2018 [facility] Serum or plasma urea nitrogen/creatinine mass ratio 13 6 - 25 08/27/2018 [facility] Estimated glomerular filtration rate (GFR) determination > 60 60 08/27/2018 [facility] Glucose measurement 102 74 - 118 08/27/2018 [facility] Serum or plasma calcium measurement (mass/volume) 9.6 8.4 - 10.2 08/27/2018 [facility] Serum or plasma total bilirubin measurement (mass/volume) 0.5 0.2 - 1.2 08/27/2018 [facility] Aspartate Amino Transf (AST/SGOT) 22 5 - 34 08/27/2018 [facility] Serum or plasma alanine aminotransferase measurement (enzymatic activity/volume) 29 0 - 55 08/27/2018 [facility] Serum or plasma protein measurement (mass/volume) 6.3 6.5 - 8.1 08/27/2018 [facility] Serum or plasma albumin measurement (mass/volume) 3.1 3.5 - 5.0 08/27/2018 [facility] Plasma globulin measurement (mass/volume) 3.2 2.3 - 3.5 08/27/2018 [facility] Serum or plasma albumin/globulin mass ratio 1.0 0.8 - 2.0 08/27/2018 [facility] Serum or plasma alkaline phosphatase measurement (enzymatic activity/volume) 48 40 - 150 08/27/2018 [facility] Serum or plasma triglyceride measurement (mass/volume) 91 0 - 149 08/27/2018 [facility] Serum or plasma cholesterol measurement (mass/volume) 140 0 - 199 08/27/2018 [facility] Serum or plasma cholesterol in LDL measurement (mass/volume) 75 60 - 130 08/27/2018 [facility] Serum or plasma cholesterol in HDL measurement (mass/volume) 47 40 - 60 08/27/2018 [facility] Serum or plasma total cholesterol/cholesterol in HDL mass ratio 3.0 3.0 - 3.6 08/27/2018 [facility] Free thyroxine index 2.7758 1.4 - 3.8 08/27/2018 [facility] Serum or plasma thyroxine (T4) measurement (mass/volume) 11.48 4.5 - 10.9 08/27/2018 [facility] Serum or plasma triiodothyronine resin uptake (T3RU) 24.18 22.5 - 37.0 08/27/2018 [facility] Serum or plasma thyrotropin measurement by detection limit <=0.005 miu/l (units/volume) 0.013 0.350 - 4.940 08/27/2018 [facility] Serum or plasma creatine kinase measurement (enzymatic activity/volume) 25 29 - 168 08/26/2018 [facility] Serum or plasma creatine kinase MB measurement (mass/volume) 0.40 0 - 5.0 08/26/2018 [facility] Troponin I measurement by highly sensitive enzyme immunoassay < 0.001 0 - 0.300 08/26/2018 [facility] Serum or plasma magnesium measurement (mass/volume) 2.3 1.3 - 2.1 08/26/2018 [facility] BNP Bld-mCnc 41.8 0 - 100 08/26/2018 [facility] Prothrombin time (PT) in platelet poor plasma by coagulation assay 13.0 11.9 - 14.5 08/19/2018 [facility] INR in Platelet poor plasma by Coagulation assay 0.93 08/19/2018 [facility] Activated partial thromboplastin time (aPTT) in platelet poor plasma bycoagulation assay 26.4 23.8 - 35.5 08/19/2018 [facility] Urine color determination YELLOW YELLOW 08/19/2018 [facility] Urine clarity CLEAR CLEAR 08/19/2018 [facility] Specific gravity of Urine by Test strip 1.010 1.010 - 1.025 08/19/2018 [facility] Urine pH measurement by automated test strip 7 5 - 7 08/19/2018 [facility] Urine leukocyte esterase detection by dipstick NEGATIVE NEGATIVE 08/19/2018 [facility] Urine nitrite detection NEGATIVE NEGATIVE 08/19/2018 [facility] Urine protein measurement by test strip (mass/volume) NEGATIVE NEGATIVE 08/19/2018 [facility] Urine glucose detection NEGATIVE NEGATIVE 08/19/2018 [facility] Urine ketones detection by automated test strip NEGATIVE NEGATIVE 08/19/2018 [facility] Urine urobilinogen measurement by test strip (mass/volume) 0.2 0.2 - 1 08/19/2018 [facility] Urine total bilirubin measurement (mass/volume) NEGATIVE NEGATIVE 08/19/2018 [facility] Urine erythrocytes detection NEGATIVE NEGATIVE 08/19/2018 [facility] Automated urine sediment leukocyte count by microscopy (number/high power field) NONE 0 - 5 08/19/2018 [facility] Erythrocytes detection in urine sediment by light microscopy NONE 0 - 5 08/19/2018 [facility] Bacteria detection in urine sediment by light microscopy NONE NONE 08/19/2018 [facility] Epithelial cells detection in urine sediment by light microscopy FEW NONE 08/19/2018 [facility] Urine human chorionic gonadotropin (hCG) detection NEGATIVE NEGATIVE 08/19/2018 [facility] Hyaline casts detection in urine sediment by light microscopy 2-5 0 - 1 04/01/2018 [facility] Mucus detection in urine sediment by light microscopy MANY RARE 04/01/2018 [facility] Serum or plasma amylase measurement (enzymatic activity/volume) 61 25 - 125 04/01/2018 [facility] Serum or plasma lipase measurement (enzymatic activity/volume) 24 8 - 78 04/01/2018 [facility] Pathology Reports No Data Provided for This Section Diagnostic Reports No Data Provided for This Section Consultation Notes No Data Provided for This Section Discharge Summaries No Data Provided for This Section History and Physicals No Data Provided for This Section Vital Signs Vital Sign Value Date Comments [...] Date Status Source [place] - [facility] - [id number] GarzaP: [address] [place] [address], Ph. 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 [phone] [id number] Mihir Small 06/09/2016 [facility] Departed Emergency Room [id number] EDUARDO ZARATE MD 04/01/2018 04/01/2018 [facility] Discharged Inpatient (obs) [id number] FRANCHESCA BROWN MD 08/19/2018 08/20/2018 [facility] Discharged Inpatient (obs) [id number] FRANCHESCA BROWN MD 08/26/2018 08/28/2018 [facility] Procedures Procedure Code Date Perfomer Comments Source Computed tomography of chest with contrast [id number] 08/20/2018 [facility] X-ray of chest, two views [id number] 08/19/2018 [facility] Computed tomography of abdomen and pelvis with contrast [id number] 04/01/2018 [facility] Cholecystectomy 04/14/2014 [facility] Assessment and Plan No Data Provided for This Section Plan of Care Plan of Care Date Source Discharge Date 08/28/18 4:20pm Disposition HOME, SELF-CARE Instructions/Education Provided Anticoagulation Therapy Bradycardia Prescriptions See Medication Section Referrals THOMAS NERI MD (Cardiology) Order Date: 1-2 Weeks Entered Date: 08/28/2018 3:30pm Address: [address] [place] [id number] FRANCHESCA BROWN MD (Internal Medicine) Order Date: 3 Days Entered Date: 08/28/2018 3:30pm Address: [address] [place] [id number] 08/28/2018 [facility] Social History Social History Date Source Smoking Status Start Date Stop Date Never Smoker 08/28/2018 [facility] Smoking Status Never Smoker 07/27/2010 [facility] Family History No Data Provided for This Section Advance Directives Order Name Results Value Date Source Advance Directives Advance Directives Directive Response Recorded Date/Time Does the patient have an advance directive? No 08/26/18 5:05pm If yes, is advance directive on file with [facility]? No 08/26/18 5:05pm If not on file with [facility] will patient provide a copy? No 08/27/18 1:46pm Do you have a Directive to Physician? No 08/26/18 1:57am Do you have a Medical Power of Communication Specialist? No 08/26/18 1:57am Do you have an out of hospital Do Not Resuscitate Order? No 08/26/18 1:57am Do you have any special needs we should be aware of? No 08/26/18 1:57am Do you have a support person here with you today? Yes 08/26/18 1:57am Did patient receive Notice of Privacy Practices? Yes 08/26/18 1:57am Did patient receive patient rights and responsibilities? Yes 08/26/18 1:57am 08/28/2018 [facility] Functional Status No Data Provided for This Section
[2018-10-08] MEDS ORDERED: DILTIAZEM HCL 5 MG/ML 5 ML VIAL IV ONE (23:00)
[2018-10-08] MEDS ORDERED: AMIODARONE HCL 150MG 100 ML IV SCH (23:00)
[2018-10-08] MEDS ORDERED: AMIODARONE HCL 360MG 200 ML IV SCH (23:17)
[2018-10-08] MEDS ORDERED: DILTIAZEM HCL VIAL 5 ML ONE (23:20)
--- NOTE | 2018-10-08 23:27 | Diagnostic Imaging Report ---
Examination: Single AP view of the chest. COMPARISON: 08/26/18 INDICATION: Rapid Heartbeat DISCUSSION: Lines/tubes: None. Lungs: Central venous congestion. Pleura: No pleural effusion or pneumothorax. Heart and mediastinum: Cardiomegaly Bones and soft tissues: No acute bony abnormalities. IMPRESSION: 1. Cardiomegaly with central venous congestion. Signed by: Dr. Manuel Kelsey M.D. on 10/08/2018 11:24 PM
[2018-10-08] MEDS ORDERED: AMIODARONE HCL 150MG 100 ML ONE (23:35)
[2018-10-08 23:42] LABS: BASOPHILS % 0.3 % (0.0-1.0); EOSINOPHILS # (AUTO) 0.1 (0.0-0.4); EOSINOPHILS % 0.8 % (0.0-6.0); HEMATOCRIT 37.9 % (34.2-44.1); HEMOGLOBIN 12.8 g/dL (12.0-16.0); LYMPHOCYTES # (AUTO) 1.7 (1.0-3.2); LYMPHOCYTES % 16.2 % (18.0-39.1); MEAN CORPUSCULAR HEMOGLOBIN 31.1 pg (28-32); MEAN CORPUSCULAR HGB CONC 33.8 g/dL (31-35); MONOCYTES # (AUTO) 0.8 (0.2-0.8); MONOCYTES % 7.1 % (4.4-11.3); NEUTROPHILS % 75.2 % (38.7-80.0); PLATELET COUNT 212 x10e3/uL (140-360); RED BLOOD COUNT 4.12 x10e6/uL (3.6-5.1); RED CELL DISTRIBUTION WIDTH 14.1 % (11.7-14.4)
[2018-10-08 23:50] LABS: PARTIAL THROMBOPLASTIN TIME 34.2 seconds (23.8-35.5)
[2018-10-08 23:55] LABS: PROTHROMBIN TIME 13.7 seconds (11.9-14.5)
[2018-10-09] VITALS (24 sets, daily range): BP systolic 101–136; BP diastolic 49–104
[2018-10-09 00:28] LABS: ALANINE AMINOTRANSFERASE 38 IU/L (0-55); ALBUMIN 3.7 g/dL (3.5-5.0); ALBUMIN/GLOBULIN RATIO 1.1 (0.8-2.0); ALKALINE PHOSPHATASE 62 IU/L (40-150); ANION GAP 15.4 mmol/L (8-16); BLOOD UREA NITROGEN 10 mg/dL (7-26); BUN/CREATININE RATIO 11 (6-25); CALCIUM 9.5 mg/dL (8.4-10.2); CARBON DIOXIDE 26 mmol/L (22-29); CHLORIDE 101 mmol/L (98-107); CREATINE KINASE 68 IU/L (29-168); EST GLOMERULAR FILTRATION RATE > 60 ML/MIN (60-); GLUCOSE 145 mg/dL (74-118); POTASSIUM 3.4 mmol/L (3.5-5.1); SODIUM 139 mmol/L (136-145)
[2018-10-09 00:43] LABS: BILIRUBIN,URINE NEGATIVE (NEGATIVE); CLARITY,URINE CLEAR (CLEAR); COLOR,URINE YELLOW (YELLOW); KETONES,URINE NEGATIVE (NEGATIVE); LEUKOCYTE ESTERASE ,URINE NEGATIVE (NEGATIVE); NITRITE,URINE NEGATIVE (NEGATIVE); PROTEIN,URINE DIPSTICK NEGATIVE (NEGATIVE); URINE UROBILINOGEN 0.2 mg/dL (0.2 - 1)
[2018-10-09] MEDS ORDERED: ONDANSETRON HCL INJ 2MG/ML 2ML 2 MG/ML VIAL IV PRN (00:45)
[2018-10-09] MEDS ORDERED: MORPHINE SULFATE 2 MG/ML SYR 1ML IV PRN (00:45)
--- OUTSIDE RECORDS SUMMARY | 2018-10-09 00:46 | XMS REPORT | Continuity of Care Document ---
Author Author [employer] Address Unknown Phone Unavailable Care Team Providers Care Jinriksha Driver Name Role Phone [employer] Information [employer] Unavailable Unavailable Problems Problem Status Onset Date [...] Atrial fibrillation with RVR Active Problem 08/28/2018 [facility] Chest pain Active Problem 08/28/2018 [facility] Dehydration Active Problem 08/28/2018 [facility] Intractable vomiting Active Problem 08/28/2018 [facility] Medications Medication Details Route Status Patient Instructions Ordering Provider Order Date Source Azelastine hydrochloride 0.137 MG/ACTUAT Metered Dose Nasal [place] azelastine 137 mcg (0.1 %) nasal spray [...] Fluticasone propionate 0.05 MG/ACTUAT Metered Dose Nasal [place] fluticasone 50 mcg/actuation nasal spray,suspension Inhale 1 [...] mometasone furoate 0.05 MG/ACTUAT Metered Dose Nasal [place] [Nasonex] Nasonex 50 mcg/actuation [place] Active [facility] 24 HR phendimetrazine tartrate 105 [...] misoprostol 200 mcg tablet Active [facility] Nystatin 687638 UNT/ML Oral Suspension nystatin 100,000 unit/mL oral [...] Active [facility] Azelastine Hcl 137 Mcg/0.137 Ml [place].pump Twice A Day Active [facility] Citalopram Hydrobromide (Citalopram Hbr) 20 Mg Tablet Daily Active [facility] Eliquis Twice A Day Active [facility] Fish Oil/Dha/Epa (Fish Oil 1,200 Mg Fish Oil) 1 Each Capsule Daily Active [facility] Flecainide Acetate 100 Mg Tablet Twice A Day Active [facility] Fluticasone Propionate 16 Gm [place].susp Daily Active [facility] Folic Acid 1 Mg Tablet Daily Active [facility] Levocetirizine Dihydrochloride (Xyzal) 5 Mg Tablet Daily Active THERAPEUTICALLY SUBSTITUTED WITH LORATADINE [facility] Levothyroxine Sodium 150 Mcg Tablet Daily Active [facility] Liothyronine Sodium 5 Mcg Tablet Daily Active [facility] Losartan Potassium 25 Mg Tablet Daily Active [facility] Meloxicam 7.5 Mg Tablet Daily Active [facility] Methotrexate Sodium (Methotrexate) 2.5 Mg Tablet .friday Active [facility] Montelukast Sodium 10 Mg Tablet Daily Active [facility] Pantoprazole Sodium (Protonix) 40 Mg Tablet.dr [place] Active [facility] Allergies, Adverse Reactions, Alerts Substance Category Reaction Severity Reaction type Status Date Reported Comments Source Biaxin Nausea Allergy to substance 03/03/2009 [facility] Penicillins Other Severe Allergy to substance 03/03/2009 [facility] Penicillin Mild Allergy to Substance Active 08/06/2009 [facility] Clindamycin Respiratory distress Allergy to substance 04/06/2014 [facility] Clarithromycin Unknown Allergy to Substance Active 04/01/2018 [facility] Immunizations Immunization Date Given Site Status Last Updated Comments Source influenza, seasonal, injectable 01/12/2015 completed [facility] Influenza A monovalent (H5N1), ADJUVANTED-2013 01/12/2014 completed [facility] influenza, unspecified formulation 01/25/2013 completed [facility] Tdap 04/14/2006 completed [facility] Results Order Name Results Value Reference Range Date Interpretation Comments Source Blood leukocytes automated count (number/volume) 8.42 4.8 - 10.8 08/27/2018 [facility] Blood erythrocytes automated count (number/volume) 4.00 3.6 - 5.1 08/27/2018 [facility] Blood hemoglobin measurement (moles/volume) 12.2 12.0 - 16.0 08/27/2018 [facility] Automated blood hematocrit (volume fraction) 38.5 34.2 - 44.1 08/27/2018 [facility] Automated erythrocyte mean corpuscular volume 96.3 81 - 99 08/27/2018 [facility] Automated erythrocyte mean corpuscular hemoglobin (mass per erythrocyte) 30.5 28 - 32 08/27/2018 [facility] Automated erythrocyte mean corpuscular hemoglobin concentration measurement (mass/volume) 31.7 31 - 35 08/27/2018 [facility] RDW BldCo-Rto 13.6 11.7 - 14.4 08/27/2018 [facility] Automated blood platelet count (count/volume) 212 140 - 360 08/27/2018 [facility] Automated blood segmented neutrophil count as percentage of total leukocytes 60.6 38.7 - 80.0 08/27/2018 [facility] Automated blood lymphocyte count as percentage ot total leukocytes 29.0 18.0 - 39.1 08/27/2018 [facility] Automated blood monocyte count as percentage of total leukocytes 7.5 4.4 - 11.3 08/27/2018 [facility] Automated blood eosinophil count as percentage of total leukocytes 1.9 0.0 - 6.0 08/27/2018 [facility] Automated blood basophil count as percentage of total leukocytes 0.5 0.0 - 1.0 08/27/2018 [facility] IM GRANULOCYTES % 0.5 0.0 - 1.0 08/27/2018 [facility] Automated blood neutrophil count 5.1 2.1 - 6.9 08/27/2018 [facility] Blood lymphocytes count (number/volume) 2.4 1.0 - 3.2 08/27/2018 [facility] Blood monocytes automated count (number/volume) 0.6 0.2 - 0.8 08/27/2018 [facility] Automated blood eosinophil count 0.2 0.0 - 0.4 08/27/2018 [facility] Automated blood basophil count (count/volume) 0.0 0.0 - 0.1 08/27/2018 [facility] Absolute Immature Granulocyte (auto 0.04 0 - 0.1 08/27/2018 [facility] Serum or plasma sodium measurement (moles/volume) 138 136 - 145 08/27/2018 [facility] Serum or plasma potassium measurement (moles/volume) 4.2 3.5 - 5.1 08/27/2018 [facility] Serum or plasma chloride measurement (moles/volume) 103 98 - 107 08/27/2018 [facility] Serum or plasma carbon dioxide, total measurement (moles/volume) 30 22 - 29 08/27/2018 [facility] Serum or plasma anion gap 9.2 8 - 16 08/27/2018 [facility] Serum or plasma urea nitrogen measurement (mass/volume) 10 7 - 26 08/27/2018 [facility] Serum or plasma creatinine measurement (mass/volume) 0.77 0.57 - 1.11 08/27/2018 [facility] Serum or plasma urea nitrogen/creatinine mass ratio 13 6 - 25 08/27/2018 [facility] Estimated glomerular filtration rate (GFR) determination > 60 60 08/27/2018 [facility] Glucose measurement 102 74 - 118 08/27/2018 [facility] Serum or plasma calcium measurement (mass/volume) 9.6 8.4 - 10.2 08/27/2018 [facility] Serum or plasma total bilirubin measurement (mass/volume) 0.5 0.2 - 1.2 08/27/2018 [facility] Aspartate Amino Transf (AST/SGOT) 22 5 - 34 08/27/2018 [facility] Serum or plasma alanine aminotransferase measurement (enzymatic activity/volume) 29 0 - 55 08/27/2018 [facility] Serum or plasma protein measurement (mass/volume) 6.3 6.5 - 8.1 08/27/2018 [facility] Serum or plasma albumin measurement (mass/volume) 3.1 3.5 - 5.0 08/27/2018 [facility] Plasma globulin measurement (mass/volume) 3.2 2.3 - 3.5 08/27/2018 [facility] Serum or plasma albumin/globulin mass ratio 1.0 0.8 - 2.0 08/27/2018 [facility] Serum or plasma alkaline phosphatase measurement (enzymatic activity/volume) 48 40 - 150 08/27/2018 [facility] Serum or plasma triglyceride measurement (mass/volume) 91 0 - 149 08/27/2018 [facility] Serum or plasma cholesterol measurement (mass/volume) 140 0 - 199 08/27/2018 [facility] Serum or plasma cholesterol in LDL measurement (mass/volume) 75 60 - 130 08/27/2018 [facility] Serum or plasma cholesterol in HDL measurement (mass/volume) 47 40 - 60 08/27/2018 [facility] Serum or plasma total cholesterol/cholesterol in HDL mass ratio 3.0 3.0 - 3.6 08/27/2018 [facility] Free thyroxine index 2.7758 1.4 - 3.8 08/27/2018 [facility] Serum or plasma thyroxine (T4) measurement (mass/volume) 11.48 4.5 - 10.9 08/27/2018 [facility] Serum or plasma triiodothyronine resin uptake (T3RU) 24.18 22.5 - 37.0 08/27/2018 [facility] Serum or plasma thyrotropin measurement by detection limit <=0.005 miu/l (units/volume) 0.013 0.350 - 4.940 08/27/2018 [facility] Serum or plasma creatine kinase measurement (enzymatic activity/volume) 25 29 - 168 08/26/2018 [facility] Serum or plasma creatine kinase MB measurement (mass/volume) 0.40 0 - 5.0 08/26/2018 [facility] Troponin I measurement by highly sensitive enzyme immunoassay < 0.001 0 - 0.300 08/26/2018 [facility] Serum or plasma magnesium measurement (mass/volume) 2.3 1.3 - 2.1 08/26/2018 [facility] BNP Bld-mCnc 41.8 0 - 100 08/26/2018 [facility] Prothrombin time (PT) in platelet poor plasma by coagulation assay 13.0 11.9 - 14.5 08/19/2018 [facility] INR in Platelet poor plasma by Coagulation assay 0.93 08/19/2018 [facility] Activated partial thromboplastin time (aPTT) in platelet poor plasma bycoagulation assay 26.4 23.8 - 35.5 08/19/2018 [facility] Urine color determination YELLOW YELLOW 08/19/2018 [facility] Urine clarity CLEAR CLEAR 08/19/2018 [facility] Specific gravity of Urine by Test strip 1.010 1.010 - 1.025 08/19/2018 [facility] Urine pH measurement by automated test strip 7 5 - 7 08/19/2018 [facility] Urine leukocyte esterase detection by dipstick NEGATIVE NEGATIVE 08/19/2018 [facility] Urine nitrite detection NEGATIVE NEGATIVE 08/19/2018 [facility] Urine protein measurement by test strip (mass/volume) NEGATIVE NEGATIVE 08/19/2018 [facility] Urine glucose detection NEGATIVE NEGATIVE 08/19/2018 [facility] Urine ketones detection by automated test strip NEGATIVE NEGATIVE 08/19/2018 [facility] Urine urobilinogen measurement by test strip (mass/volume) 0.2 0.2 - 1 08/19/2018 [facility] Urine total bilirubin measurement (mass/volume) NEGATIVE NEGATIVE 08/19/2018 [facility] Urine erythrocytes detection NEGATIVE NEGATIVE 08/19/2018 [facility] Automated urine sediment leukocyte count by microscopy (number/high power field) NONE 0 - 5 08/19/2018 [facility] Erythrocytes detection in urine sediment by light microscopy NONE 0 - 5 08/19/2018 [facility] Bacteria detection in urine sediment by light microscopy NONE NONE 08/19/2018 [facility] Epithelial cells detection in urine sediment by light microscopy FEW NONE 08/19/2018 [facility] Urine human chorionic gonadotropin (hCG) detection NEGATIVE NEGATIVE 08/19/2018 [facility] Hyaline casts detection in urine sediment by light microscopy 2-5 0 - 1 04/01/2018 [facility] Mucus detection in urine sediment by light microscopy MANY RARE 04/01/2018 [facility] Serum or plasma amylase measurement (enzymatic activity/volume) 61 25 - 125 04/01/2018 [facility] Serum or plasma lipase measurement (enzymatic activity/volume) 24 8 - 78 04/01/2018 [facility] Pathology Reports No Data Provided for [...] Date Status Source [place] - [facility] - [id number] GarzaP: [address] [place] [address], Ph. 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 [phone] [id number] Mihir Small 06/09/2016 [facility] Departed Emergency Room [id number] EDUARDO ZARATE MD 04/01/2018 04/01/2018 [facility] Discharged Inpatient (obs) [id number] FRANCHESCA BROWN MD 08/19/2018 08/20/2018 [facility] Discharged Inpatient (obs) [id number] FRANCHESCA BROWN MD 08/26/2018 08/28/2018 [facility] Procedures Procedure Code Date Perfomer Comments Source Computed tomography of chest with contrast [id number] 08/20/2018 [facility] X-ray of chest, two views [id number] 08/19/2018 [facility] Computed tomography of abdomen and pelvis with contrast [id number] 04/01/2018 [facility] Cholecystectomy 04/14/2014 [facility] Assessment and Plan No Data Provided for This Section Plan of Care Plan of Care Date Source Discharge Date 08/28/18 4:20pm Disposition HOME, SELF-CARE Instructions/Education Provided Anticoagulation Therapy Bradycardia Prescriptions See Medication Section Referrals THOMAS NERI MD (Cardiology) Order Date: 1-2 Weeks Entered Date: 08/28/2018 3:30pm Address: [address] [place] [id number] FRANCHESCA BROWN MD (Internal Medicine) Order Date: 3 Days Entered Date: 08/28/2018 3:30pm Address: [address] [place] [address] 08/28/2018 [facility] Social History Social History Date Source Smoking Status Start Date Stop Date Never Smoker 08/28/2018 [facility] Smoking Status Never Smoker 07/27/2010 [facility] Family History No Data Provided for This Section Advance Directives Order Name Results Value Date Source Advance Directives Advance Directives Directive Response Recorded Date/Time Does the patient have an advance directive? No 08/26/18 5:05pm If yes, is advance directive on file with [facility]? No 08/26/18 5:05pm If not on file with [facility] will patient provide a copy? No 08/27/18 1:46pm Do you have a Directive to Physician? No 08/26/18 1:57am Do you have a Medical Power of Cloth Shrinker? No 08/26/18 1:57am Do you have an [...] rights and responsibilities? Yes 08/26/18 1:57am 08/28/2018 [facility] Functional Status No Data Provided for This Section
[2018-10-09] MEDS ORDERED: AMIODARONE HCL200 MG PO (00:49)
[2018-10-09] MEDS ORDERED: CARDIZEM60 MG PO (00:49)
[2018-10-09 00:50] LABS: BACTERIA,URINE RARE /HPF; EPITHELIAL CELLS,URINE FEW /LPF; RBC,URINE 0-5 /HPF (0-5); WBC,URINE (MAN) 0-5 /HPF (0-5)
[2018-10-09] MEDS ORDERED: METHOTREXATE SOD 2.5 MG TAB PO SCH (01:00)
[2018-10-09] MEDS ORDERED: AMIODARONE 900MG 500 ML IV ONE (01:07)
[2018-10-09] MEDS: AMIODARONE HCL 360MG 200 ML IV SCH ×2 (01:41→01:42)
[2018-10-09] MEDS: LEVOTHYROXINE SODIUM 100 MCG TAB PO SCH (05:08)
[2018-10-09] MEDS ORDERED: AMIODARONE HCL 360MG 200 ML IV SCH (05:19)
[2018-10-09] MEDS ORDERED: MORPHINE SULFATE INJ 4 MG/ML INJ 1ML IV PRN (06:15)
[2018-10-09] MEDS: DILTIAZEM HCL 60 MG TAB PO SCH ×2 (08:59→16:16)
[2018-10-09] MEDS: CITALOPRAM HYDROBROMIDE 20 MG TAB PO SCH (08:59)
[2018-10-09] MEDS: FOLIC ACID 1 MG TAB PO SCH (09:00)
[2018-10-09] MEDS: FLUTICASONE PROPIONATE NASAL SPRAY NS SCH (09:00)
[2018-10-09] MEDS: PANTOPRAZOLE SOD 40 MG TABEC PO SCH (09:00)
[2018-10-09] MEDS ORDERED: NON-FORMULARY MEDICATION (Fish Oil/Dha/Epa (Fish Oil 1,200 Mg Fish Oil) 1,200 MG) PO SCH (09:00)
[2018-10-09] MEDS ORDERED: LEVOTHYROXINE SODIUM 100 MCG PO SCH (09:00)
[2018-10-09] MEDS ORDERED: AMIODARONE HCL 200 MG TAB PO SCH ×2 (09:00→15:00)
[2018-10-09] MEDS: MONTELUKAST SODIUM 10 MG TAB PO SCH (09:00)
[2018-10-09] MEDS: LIOTHYRONINE SODIUM 5 MCG TAB PO SCH (09:00)
[2018-10-09] MEDS: APIXABAN 5 MG TABLET PO SCH ×2 (09:00→16:15)
[2018-10-09] MEDS: OMEGA 3 POLYUNSAT FATTY ACIDS 1000 MG SOFTGEL PO SCH (09:00)
[2018-10-09] MEDS: LOSARTAN POTASSIUM 25 MG TAB PO SCH (09:02)
--- NOTE | 2018-10-09 10:48 | NUR ---
ASSESSMENT: Spiritual concern Pt thankful for PMC. Pt states she had an unpleasant stay at a different hospital and "recommends Patients to everyone I see." Intervention: Provided empathic listening. Facilitated illness review. Outcome: No need to follow at this time. OLY BURR [employer] Spiritual Care Department O: [phone] Pager: [phone] ([phone] number calling from)
--- NOTE | 2018-10-09 15:14 | Consultation ---
DATE OF CONSULTATION: 10/09/2018 REASON FOR CONSULTATION: Atrial fibrillation. CHIEF COMPLAINT: Shortness of breath, tachycardia, palpitations. HISTORY OF PRESENT ILLNESS: This is a 53-year-old female, well known to practice, with history atrial fibrillation status post atrial fibrillation ablation on September 24, 2018, with Dr. Ramirez, lupus, hypothyroidism, KEITH on CPAP machine, asthma, Rodarte's esophagus, retinal disease, and morbid obesity. The patient presents to [facility] ER with complaints of palpitations and shortness of breath, was noted in atrial fibrillation with RVR, was given diltiazem IV and amnio bolus and drip and placed in ICU care. Cardiology was consulted. The patient is seen in ICU and currently she is in sinus rhythm on amiodarone drip. The patient reports yesterday morning felt intermittent palpitations, took her diltiazem and amiodarone; however, in the afternoon, reports palpitations and took her medications, after a short while had episode of shortness of breath, so therefore came to the ER for further evaluation. In the ER, she was noted in atrial fibrillation with RVR, as mentioned before was given diltiazem and amiodarone bolus, now the patient in sinus rhythm. The patient reports she feels back to her baseline. PAST MEDICAL HISTORY: Atrial fibrillation status post atrial fibrillation ablation on September 24, 2018, lupus, hypothyroidism, KEITH on CPAP, asthma, morbid obesity, Rodarte's esophagus, retinal disease. PAST SURGICAL HISTORY: Atrial fibrillation ablation on September 24, 2018, left knee, right wrist cyst removal, and cholecystectomy. FAMILY HISTORY: Father alive age 79, history of colon cancer and lung cancer. Mother alive, apparently age around 76 with history of diverticulosis. SOCIAL HISTORY: She is . She is a nonsmoker and no alcohol use. HOME MEDICATIONS: Include amiodarone 200 mg b.i.d., Eliquis 5 mg b.i.d., diltiazem 120 mg b.i.d., and losartan 50 mg daily. ALLERGIES: PENICILLIN AND CLARITHROMYCIN. REVIEW OF SYSTEMS: GENERAL: Denies any weight gain or weight changes, fatigue, weakness, fevers, chills, night sweats. SKIN: No rashes or bruises reported. HEENT: Denies any vision changes, nausea, vomiting, any blurred vision, double vision, ear aches, epistaxis, sore throat, swollen neck. CARDIAC: Positive for palpitations. Denies any chest pains. Positive for dyspnea on exertion. Denies any orthopnea or PND. Positive for intermittent lower extremity edema. RESPIRATORY: Positive for shortness of breath. Denies any wheezing, coughing, or hemoptysis. GI: Reports good appetite. No nausea, vomiting, diarrhea, constipation, melena, hematochezia. URINARY: Denies any frequency, urgency, dysuria, or hematuria. VASCULAR: Intermittent lower extremity edema. Denies any claudication. MUSCULOSKELETAL: Denies any muscle weakness. Positive for generalized joint pains, back pains. NEUROLOGIC: Denies any tingling tremors, weakness, paralysis, fainting, seizures. HEMATOLOGY: Denies any anemia. Positive for intermittent bruising. Denies any overt bleeding. ENDOCRINE: Denies any heat or cold intolerance. No polyuria, polydipsia, or polyphagia. PHYSICAL EXAMINATION: VITAL SIGNS: Temperature 98.6, pulse 62, respiratory rate 16, blood pressure 116/68, and pulse ox 100% on 2 L nasal cannula. Height 64 inches, weight 286 pounds, BMI 49.1. GENERAL: Appears stated age, reliable informant, in no acute distress. SKIN: No rashes or bruises noted. HEENT: Normocephalic. Pupils are equal and reactive. Extraocular movements intact. Oral mucosa pink. NECK: Trachea midline. No thyromegaly noted. No JVD noted. HEART: Regular rate and rhythm. No murmurs, clicks, or gallops. PMI about 5th intercostal space. LUNGS: Bilateral breath sounds clear to auscultation. Good airway entry and exit. ABDOMEN: Soft, nontender, nondistended. No organomegaly noted. MUSCULOSKELETAL: +1 lower extremity edema. VASCULAR: +2 radial bilateral pulses. +1 DP, PT pulses bilaterally. NEUROLOGIC: Cranial nerves 2 through 12 seem intact. LABORATORY DATA: White count 10, hemoglobin 12.8, hematocrit of 37, platelets of 212. Chemistry; sodium 139, potassium 3.4, BUN 10, creatinine 0.9. Troponin less than 0.001, next less than 0.001. BNP 158. EKG showing atrial fibrillation with RVR. ASSESSMENT: 1. Atrial fibrillation status post atrial fibrillation ablation on September 24, 2018. 2. Obstructive sleep apnea. 3. Morbid obesity. 4. Hypothyroidism. PLAN: 1. The patient presents with atrial fibrillation with RVR with recent atrial fibrillation ablation, was placed on amiodarone drip, but now back in sinus rhythm. We will cover any O2 and p.o. regimen. We will continue the patient's diltiazem therapy. 2. Continue the patient's Eliquis therapy for thromboembolism prevention. 3. EP has been consulted and further recommendations as per EP. Thank you very much for this consult. Further recommendations as clinical course dictates. Dictated by Jayesh Herrera NP Yon Hewitt MD DC/SUZANNE /[id number]
[2018-10-09] MEDS: AMIODARONE HCL 200 MG TAB PO SCH (16:15)
[2018-10-09 23:03] LABS: CREATINE KINASE 32 IU/L (29-168)
[2018-10-10] VITALS (17 sets, daily range): BP systolic 101–139; BP diastolic 56–85
[2018-10-10 05:09] LABS: BASOPHILS % 0.3 % (0.0-1.0); EOSINOPHILS # (AUTO) 0.2 (0.0-0.4); EOSINOPHILS % 1.7 % (0.0-6.0); HEMATOCRIT 36.7 % (34.2-44.1); HEMOGLOBIN 11.8 g/dL (12.0-16.0); LYMPHOCYTES # (AUTO) 1.7 (1.0-3.2); LYMPHOCYTES % 18.9 % (18.0-39.1); MEAN CORPUSCULAR HEMOGLOBIN 30.6 pg (28-32); MEAN CORPUSCULAR HGB CONC 32.2 g/dL (31-35); MEAN CORPUSCULAR VOLUME 95.1 fL (81-99); MONOCYTES # (AUTO) 0.7 (0.2-0.8); MONOCYTES % 7.6 % (4.4-11.3); NEUTROPHILS # (AUTO) 6.4 (2.1-6.9); NEUTROPHILS % 71.2 % (38.7-80.0); PLATELET COUNT 210 x10e3/uL (140-360); RED BLOOD COUNT 3.86 x10e6/uL (3.6-5.1); RED CELL DISTRIBUTION WIDTH 14.3 % (11.7-14.4)
[2018-10-10 05:24] LABS: ALANINE AMINOTRANSFERASE 31 IU/L (0-55); ALBUMIN 3.3 g/dL (3.5-5.0); ALKALINE PHOSPHATASE 55 IU/L (40-150); ANION GAP 13.6 mmol/L (8-16); BLOOD UREA NITROGEN 8 mg/dL (7-26); BUN/CREATININE RATIO 10 (6-25); CALCIUM 9.1 mg/dL (8.4-10.2); CARBON DIOXIDE 29 mmol/L (22-29); CHLORIDE 101 mmol/L (98-107); CREATININE, SERUM 0.79 mg/dL (0.57-1.11); EST GLOMERULAR FILTRATION RATE > 60 ML/MIN (60-); GLUCOSE 104 mg/dL (74-118); POTASSIUM 3.6 mmol/L (3.5-5.1); SODIUM 140 mmol/L (136-145)
[2018-10-10 05:39] LABS: TRIGLYCERIDES 104 MG/DL (0-149)
[2018-10-10] MEDS: LEVOTHYROXINE SODIUM 100 MCG TAB PO SCH (06:00)
--- NOTE | 2018-10-10 07:12 | Progress Note ---
DATE: 10/10/2018 SUBJECTIVE: The patient is in ICU 189, bed #1. The patient is a here for atrial fibrillation with RVR. The patient came in yesterday, was started on an amiodarone drip. The patient is converted back to normal sinus rhythm. The patient did have an ablation last month and also has a history of obstructive sleep apnea, morbid obesity, and hypothyroidism. The patient is currently asymptomatic. No chest pain. No shortness of breath. No palpitation noted. No rectal bleeding. OBJECTIVE: VITAL SIGNS: Temperature is 98.4, pulse of 54, respirations of 21, blood pressure is 101/85, pulse oximetry of 98%. HEENT: Normocephalic, atraumatic. Pupils are reactive to light and accommodation. CVS: S1 and S2 is regular. ABDOMEN: Nontender, nondistended. EXTREMITIES: No clubbing. No cyanosis. Trace edema. MEDICATIONS: The patient is on amiodarone 400 mg twice a day, Eliquis 5 mg twice a day, losartan 50 mg daily, fish oil 4 tablets daily, pantoprazole 40 mg daily, montelukast 10 mg daily, liothyronine 5 mcg daily, fluticasone nasal spray, citalopram 20 mg daily, levothyroxine 100 mcg daily, diltiazem 120 mg twice a day, and methotrexate 17.5 mg. LABORATORY VALUES: Today's white count is 8.96, hemoglobin of 11.8, hematocrit of 36.7. Chemistry shows sodium 140, potassium 3.6, BUN of 8, and creatinine of 0.79. Coags are all within normal limits. ASSESSMENT: A 53-year-old female with atrial fibrillation with rapid ventricular response, status post IV amiodarone and converted back to normal sinus rhythm, history of recent ablation. PLAN: 1. Plan is to continue with diltiazem and continue with Eliquis and also up titrating the amiodarone to 400 mg twice a day, which is way she is at this point in time. 2. Continue with O2 as needed. 3. Continue with thyroid medication for hypothyroidism. 4. Obstructive sleep apnea. Continue using her CPAP machine. The patient also has a consult with Dr. Ramirez, the electrophysiologists. Continue to monitor the patient. Further recommendation per clinical course. We will monitor the patient and possible discharge today or tomorrow depending on her progression. MD BOSTON Canas/SUZANNE /[id number]
[2018-10-10] MEDS: FLUTICASONE PROPIONATE NASAL SPRAY NS SCH (08:43)
[2018-10-10] MEDS: DILTIAZEM HCL 60 MG TAB PO SCH ×2 (08:43→17:12)
[2018-10-10] MEDS: CITALOPRAM HYDROBROMIDE 20 MG TAB PO SCH (08:44)
[2018-10-10] MEDS: AMIODARONE HCL 200 MG TAB PO SCH ×2 (08:44→17:12)
[2018-10-10] MEDS: APIXABAN 5 MG TABLET PO SCH ×2 (08:44→17:12)
[2018-10-10] MEDS: LOSARTAN POTASSIUM 25 MG TAB PO SCH (08:44)
[2018-10-10] MEDS: LIOTHYRONINE SODIUM 5 MCG TAB PO SCH (08:44)
[2018-10-10] MEDS: FOLIC ACID 1 MG TAB PO SCH (08:45)
[2018-10-10] MEDS: OMEGA 3 POLYUNSAT FATTY ACIDS 1000 MG SOFTGEL PO SCH (08:46)
[2018-10-10] MEDS: PANTOPRAZOLE SOD 40 MG TABEC PO SCH (08:46)
[2018-10-10] MEDS: MONTELUKAST SODIUM 10 MG TAB PO SCH (08:46)
[2018-10-10] MEDS ORDERED: METHOTREXATE SOD 2.5 MG TAB PO SCH (09:00)
--- NOTE | 2018-10-10 09:45 | NUR ---
PT TO THE FLOOR AT THIS TIME. PT DENIES NEEDS AT THIS TIME.
[2018-10-10 10:29] LABS: CHOLESTEROL 172 MD/DL (0-199)
--- NOTE | 2018-10-10 12:55 | NUR ---
CLEAR FROM THE STANDPOINT OF DR. BRUNNER TO DISCHARGE HOME. FOLLOW UP.
[2018-10-10 13:11] LABS: CHOL/HDL RATIO 3.3 (3.0-3.6); HDL CHOLESTEROL 52 MG/DL (40-60); LDL CHOLESTEROL 99 MG/DL (60-130)
--- NOTE | 2018-10-10 19:50 | NUR ---
PT IS RESTING IN THE CHAIR. RESPIRATION IS EVEN AND UNLABORED, NO DISTRESS NOTED. BED IN THE LOWEST POSITION, LOCKED, AND CALL LIGHT WITHIN REACH. WILL CONTINUE TO MONITOR.
[2018-10-11 03:44] VITALS: BP 123/58
[2018-10-11] MEDS: LEVOTHYROXINE SODIUM 100 MCG TAB PO SCH (05:51)
[2018-10-11] MEDS ORDERED: AMIODARONE HCL200 MG PO (07:15)
--- NOTE | 2018-10-11 07:16 | Progress Note ---
DATE: 10/11/2018 SUBJECTIVE: The patient is here for atrial fibrillation with rapid ventricular response. The patient's medications have been changed. Currently, the patient is on amiodarone 400 mg twice a day. The patient is also on apixaban, diltiazem for rate control, asymptomatic. No chest pain. No shortness of breath. No nausea, vomiting, or diarrhea. No constipation. No rectal bleeding. OBJECTIVE: VITAL SIGNS: Temperature is 97.1, pulse of 52, respirations 16, blood pressure is 123/58, and pulse oximetry of 94%. HEENT: Normocephalic and atraumatic. Pupils are reactive to light and accommodation. CVS: S1 and S2 normal. Regular rate and rhythm. ABDOMEN: Nontender and nondistended. EXTREMITIES: No clubbing no cyanosis and/or no edema. LABORATORY VALUES: From yesterday, hemoglobin is 11.8 and 36.7. Chemistries were normal yesterday too. ASSESSMENT: 53-year-old female with atrial fibrillation with rapid ventricular response, status post ablation and back in normal sinus rhythm. PLAN: Plan is to continue with rate control, amiodarone to 400 mg twice a day, O2 as needed. Continue with hypothyroidism medicine. The patient also has history of sleep apnea. Continue with CPAP machine. Further recommendation per clinical course. The patient can be discharged today. The patient will be followed up with Cardiology and electrophysiology in about a week's time. MD BOSTON Canas/MODL /[id number]
--- NOTE | 2018-10-11 07:25 | NUR ---
RECEIVED PATIENT AWAKE IN BED NO SIGNS OF DISTRESS. BED LOW, WHEELS LOCKED, SIDE RAILS X2. CALL LIGHT IN REACH WILL CONTINUE TO MONITOR PATIENT.
--- NOTE | 2018-10-11 08:25 | NUR ---
REMOVED PATIENTS IV. CATHETER TIP INTACT AND PRESSURE DRESSING APPLIED.
[2018-10-11 08:28] VITALS: BP 144/71
[2018-10-11] MEDS: FLUTICASONE PROPIONATE NASAL SPRAY NS SCH (08:30)
[2018-10-11] MEDS: LIOTHYRONINE SODIUM 5 MCG TAB PO SCH (08:30)
[2018-10-11] MEDS: APIXABAN 5 MG TABLET PO SCH (08:30)
[2018-10-11] MEDS: MONTELUKAST SODIUM 10 MG TAB PO SCH (08:30)
[2018-10-11] MEDS: LOSARTAN POTASSIUM 25 MG TAB PO SCH (08:30)
[2018-10-11] MEDS: AMIODARONE HCL 200 MG TAB PO SCH (08:30)
[2018-10-11] MEDS: DILTIAZEM HCL 60 MG TAB PO SCH (08:30)
[2018-10-11] MEDS: OMEGA 3 POLYUNSAT FATTY ACIDS 1000 MG SOFTGEL PO SCH (08:30)
[2018-10-11] MEDS: PANTOPRAZOLE SOD 40 MG TABEC PO SCH (08:30)
[2018-10-11] MEDS: CITALOPRAM HYDROBROMIDE 20 MG TAB PO SCH (08:30)
[2018-10-11] MEDS: FOLIC ACID 1 MG TAB PO SCH (08:30)
[2018-10-11 08:33] VITALS: BP 144/71
--- NOTE | 2018-10-11 08:47 | NUR ---
PATIENT DISCHARGED FROM FACILITY. PATIENT GATHERED ALL PERSONAL BELONGINGS, DISCHARGE INSTRUCTIONS, AND FOLLOW UP INFORMATION. NO SIGNS OF DISTRESS WHEN LEAVING FACILITY.
[2018-10-14 14:48] LABS: CREATINE KINASE 48 IU/L (29-168)
--- NOTE | 2018-10-15 06:42 | Discharge Summary ---
DISCHARGE DIAGNOSES: Atrial fibrillation and hypertension. HISTORY OF PRESENT ILLNESS AND HOSPITAL COURSE: See hospital chart for full details. The patient is a 53-year-old lady, status post recent ablation for atrial fibrillation and does not appear to have worked well since she has had intermittent rapid atrial fibrillation episodes at home, but unfortunately prior to admission, she went into in atrial fibrillation with RVR episode that persisted since she returned to the emergency room. In the ICU, on IV amiodarone drip. Seen by her oil processing technician, Dr. Hewitt and fortunately about 24 hours prior to her discharge, she did slip into a normal sinus rhythm and maintain that. So, she was discharged home with continuation of her medications and follow up both her EP doctor and Cardiology in 1 to 2 weeks. Please see notes for full details. MD HIPOLITO Heredia/SUZANNE /[id number]
== END 2018-10-11 08:48 | disposition home or self-care (01) | DRG 309 ==
LOC: ER 22:52 → ERHOLD 10-09 00:43 → ICU 10-09 01:14 → MED/SURG 10-10 09:29
PROVIDERS: ADMIT Internal Medicine; ATTEND Internal Medicine
DX: I48.2 Chronic atrial fibrillation (principal); Z68.42 Body mass index [BMI] 45.0-49.9, adult; E66.01 Morbid (severe) obesity due to excess calories; Z79.01 Long term (current) use of anticoagulants; G47.33 Obstructive sleep apnea (adult) (pediatric); E03.9 Hypothyroidism, unspecified; J45.909 Unspecified asthma, uncomplicated; K22.70 Barrett's esophagus without dysplasia; H35.9 Unspecified retinal disorder; Z80.0 Family history of malignant neoplasm of digestive organs; Z80.1 Family history of malignant neoplasm of trachea, bronchus and lung; Z83.79 Family history of other diseases of the digestive system; Z88.0 Allergy status to penicillin; Z88.8 Allergy status to other drugs, medicaments and biological substances; I10 Essential (primary) hypertension
CPT/HCPCS: 36415; 71045; 80053; 80061; 81001; 82550; 82553; 83880; 84484; 85025; 85610; 85730; 93005; 99284; J2270; J8610

== ENCOUNTER 2019-06-03 22:43 | Emergency (ER) | payer OTHER ==
[~2019-06-03] VITALS: Ht 162.6 cm; Wt 128.8 kg
[~2019-06-03 22:43] MED LIST changes: +AMIODARONE HCL200 MG PO; +CARDIZEM60 MG PO
== END 2019-06-03 23:03 | disposition home or self-care (01) ==
LOC: ER 22:43
DX: K13.79 Other lesions of oral mucosa (principal); I48.91 Unspecified atrial fibrillation
CPT/HCPCS: 99282

== ENCOUNTER 2021-10-20 20:47 | Emergency (ER) | payer BC, OTHER ==
[~2021-10-20] VITALS: Ht 162.6 cm; Wt 128.8 kg
[2021-10-20 21:27] LABS: BASOPHILS # (AUTO) 0.1 (0.0-0.1); BASOPHILS % 0.3 % (0.0-1.0); EOSINOPHILS # (AUTO) 0.1 (0.0-0.4); EOSINOPHILS % 0.7 % (0.0-6.0); HEMATOCRIT 44.7 % (34.2-44.1); HEMOGLOBIN 14.9 g/dL (12.0-16.0); LYMPHOCYTES # (AUTO) 3.6 (1.0-3.2); LYMPHOCYTES % 19.9 % (18.0-39.1); MEAN CORPUSCULAR HGB CONC 33.3 g/dL (31-35); MEAN CORPUSCULAR VOLUME 92.9 fL (81-99); MONOCYTES # (AUTO) 1.4 (0.2-0.8); NEUTROPHILS # (AUTO) 12.7 (2.1-6.9); NEUTROPHILS % 70.7 % (38.7-80.0); PLATELET COUNT 301 x10e3/uL (140-360); RED BLOOD COUNT 4.81 x10e6/uL (3.6-5.1)
[2021-10-20 21:33] LABS: INR 0.97; PROTHROMBIN TIME 13.8 seconds (11.9-14.5)
[2021-10-20 21:34] LABS: PARTIAL THROMBOPLASTIN TIME 28.1 seconds (23.8-35.5)
[2021-10-20 21:43] LABS: ALBUMIN 3.1 g/dL (3.5-5.0); ALBUMIN/GLOBULIN RATIO 0.8 (0.8-2.0); ANION GAP 17.5 mmol/L (8-16); CALCIUM 8.7 mg/dL (8.4-10.2); CREATININE, SERUM 0.9 mg/dL (0.57-1.11); POTASSIUM 3.5 mmol/L (3.5-5.1)
[2021-10-20] MEDS ORDERED: IOPAMIDOL 370 MG/ML 100 ML INFUS..BTL INJ ONE (22:03)
[2021-10-21 02:05] VITALS: BP 124/72
== END 2021-10-21 00:27 | disposition home or self-care (01) ==
LOC: ER 20:55
DX: R06.00 Dyspnea, unspecified (principal); U07.1 COVID-19; R05.9 Cough, unspecified; I10 Essential (primary) hypertension; M32.9 Systemic lupus erythematosus, unspecified; E03.9 Hypothyroidism, unspecified; G47.30 Sleep apnea, unspecified; I48.91 Unspecified atrial fibrillation; R94.31 Abnormal electrocardiogram [ECG] [EKG]
CPT/HCPCS: 36415; 71260; 80053; 82550; 82553; 84484; 85025; 85610; 85730; 93005; 99283; Q9967

== ENCOUNTER 2022-08-29 10:44 | Emergency (ER) | payer BC ==
[~2022-08-29] VITALS: Ht 162.6 cm; Wt 128.8 kg
[2022-08-29] MEDS ORDERED: SODIUM CHLORIDE FLUSH 10 ML SYR IV PRN (11:45)
[2022-08-29 11:49] LABS: BASOPHILS # (AUTO) 0.1 (0.0-0.1); BASOPHILS % 0.5 % (0.0-1.0); EOSINOPHILS # (AUTO) 0.1 (0.0-0.4); EOSINOPHILS % 0.9 % (0.0-6.0); HEMATOCRIT 41.1 % (34.2-44.1); HEMOGLOBIN 13.8 g/dL (12.0-16.0); LYMPHOCYTES # (AUTO) 2.5 (1.0-3.2); LYMPHOCYTES % 17.9 % (18.0-39.1); MEAN CORPUSCULAR HEMOGLOBIN 31.3 pg (28-32); MEAN CORPUSCULAR HGB CONC 33.6 g/dL (31-35); MEAN CORPUSCULAR VOLUME 93.2 fL (81-99); NEUTROPHILS # (AUTO) 10.3 (2.1-6.9); NEUTROPHILS % 73.3 % (38.7-80.0); PLATELET COUNT 283 x10e3/uL (140-360); RED BLOOD COUNT 4.41 x10e6/uL (3.6-5.1); RED CELL DISTRIBUTION WIDTH 13.8 % (11.7-14.4)
[2022-08-29 12:12] LABS: ALBUMIN 3.9 g/dL (3.5-5.0); ANION GAP 15.5 mmol/L (8-16); CALCIUM 10.4 mg/dL (8.4-10.2); CREATININE, SERUM 0.89 mg/dL (0.57-1.11); POTASSIUM 3.5 mmol/L (3.5-5.1)
[2022-08-29 13:22] LABS: BACTERIA,URINE FEW /HPF; CLARITY,URINE CLEAR (CLEAR); COLOR,URINE YELLOW (YELLOW); EPITHELIAL CELLS,URINE FEW /LPF; KETONES,URINE NEGATIVE (NEGATIVE); LEUKOCYTE ESTERASE ,URINE NEGATIVE (NEGATIVE); NITRITE,URINE NEGATIVE (NEGATIVE); PROTEIN,URINE DIPSTICK NEGATIVE (NEGATIVE); RBC,URINE 0-5 /HPF (0-5); URINE UROBILINOGEN 0.2 mg/dL (0.2 - 1); WBC,URINE (MAN) 0-5 /HPF (0-5)
[2022-08-29 13:25] VITALS: O2SAT 98
[2022-08-29] MEDS ORDERED: AMIODARONE HCL400 MG PO (14:07)
== END 2022-08-29 14:21 | disposition home or self-care (01) ==
LOC: ER 10:53
DX: R00.2 Palpitations (principal); R42 Dizziness and giddiness; I48.0 Paroxysmal atrial fibrillation; I10 Essential (primary) hypertension; E03.9 Hypothyroidism, unspecified; M32.9 Systemic lupus erythematosus, unspecified; G47.30 Sleep apnea, unspecified; J45.909 Unspecified asthma, uncomplicated
CPT/HCPCS: 36415; 71045; 80053; 81001; 83735; 84484; 85025; 93005; 99284